=== PATIENT | male | born 1965 | race Caucasian/White ===

== ENCOUNTER 2020-09-20 13:53 | Outpatient (REF) | payer OTHER, SELFPAY ==
[2020-09-20 14:34] LABS: MANUAL DIFF FLAG NO
[2020-09-20 14:38] LABS: Basophils Absolute Auto 0.1 X10*3/uL (0.0-0.2); Basophils Percent Auto 0.7 % (0-2); Eosinophils Absolute Auto 0.2 X10*3/uL (0.0-0.4); Eosinophils Percent Auto 2.9 % (0-4); Hematocrit 45.3 % (42-52); Hemoglobin 15.5 g/dl (14.0-18.0); Imm Gran Abs Auto 0.02 X10*3/uL (0.00-0.03); Imm Gran Pct Auto 0.3 % (0.0-0.4); Lymphocytes Absolute Auto 1.8 X10*3/uL (1.2-4.9); Lymphocytes Percent Auto 24.4 % (20-40); Mean Corpuscular HGB Conc 34.2 g/dl (31.0-36.0); Mean Corpuscular Hemoglobin 33.3 pg (27.0-33.0); Mean Corpuscular Volume 97.4 fL (80-98); Mean Platelet Volume 11.1 fL (9.4-12.4); Monocytes Absolute Auto 0.5 X10*3/uL (0.1-1.2); Monocytes Percent Auto 6.2 % (2-11); Neutrophils Absolute Auto 4.9 X10*3/uL (2.0-8.3); Neutrophils Percent Auto 65.5 % (45-73); Platelet Count 144 X10*3/uL (160-400); Red Blood Count 4.65 X10*6/uL (4.60-5.80); Red Cell Distribution Width 12.8 % (11.0-16.0); White Blood Count 7.5 X10*3/uL (4.8-10.8)
[2020-09-20 15:05] LABS: Alanine Aminotransferase 64 U/L (0-40); Albumin Level 4.2 g/dL (3.5-5.0); Alkaline Phosphatase 128 U/L (39-117); Anion Gap 12 (12-20); Aspartate Amino Transferase 79 U/L (5-37); Bilirubin Total 1.9 mg/dL (0.0-1.0); Blood Urea Nitrogen 14 mg/dL (9-16); Calcium 9.5 mg/dL (8.4-10.2); Carbon Dioxide 26 mmol/L (22-29); Chloride 105 mmol/L (96-108); Estimated Glomerular Filt Rate > 60; Glucose Random 108 mg/dL (60-115); Sodium 139 mmol/L (135-145); Total Protein 7.7 g/dL (6.5-8.0)
[2020-09-20 15:31] LABS: CDIFF Ag Negative (Negative); CDIFF Internal ctrl Dots and bkg OK (V); CDiff Toxin Negative (Negative)
[2020-09-20 15:59] LABS: Leukocytes Stool Qualitative MOD: 3-9/OIF (NEGATIVE)
== END 2020-09-20 13:54 | disposition home or self-care (01) ==
LOC: HO.LAB 13:53
PROVIDERS: PCP Internal Medicine; Visit Provider Internal Medicine
DX: R19.7 Diarrhea, unspecified (principal)
CPT/HCPCS: 36415; 80053; 85025; 87045; 87046; 87324; 87329; 87338; 87449; 89055

== ENCOUNTER 2020-10-16 09:26 | Outpatient (REF) | payer OTHER, SELFPAY ==
--- NOTE | ~2020-10-16 | US_ITS ---
EXAMINATION: US COMPLETE ABDOMEN WITH LIVER ELASTOGRAPHY CLINICAL INFORMATION: Obesity. COMPARISON: None. TECHNIQUE: Real-time imaging of the abdominal viscera. Noninvasive ultrasound liver fibrosis assessment is performed using Clementina ElastPQ point quantification shear wave elastography (pSWE) with a C5-2 MHz transducer. Multiple elastography samples are obtained. FINDINGS: PANCREAS: The pancreas is completely obscured by overlying gas. ABDOMINAL AORTA: The proximal abdominal aorta is normal caliber. The mid and distal abdominal aorta is not visualized. INFERIOR VENA CAVA: Visualized portions are normal. LIVER: The liver demonstrates enlarged size, normal contour and increased echogenicity. No focal lesion or intrahepatic biliary duct dilatation. The right lobe measures 24.4 cm in length. The left lobe measures 14.2 cm in length. Portal flow is hepatopedal. Shear wave liver elastography median stiffness is 2.45 m/s (reference: normal median stiffness is 1.3 m/s or less). IQR/median stiffness to assess sampling precision is 0.12 (reference: good quality data set is IQR/median stiffness of 0.15 or less). GALLBLADDER: The gallbladder is contracted with mild wall thickening measuring 0.5 cm. COMMON BILE DUCT: Normal in caliber measuring 0.23 cm in diameter. RIGHT KIDNEY: Normal. No hydronephrosis. No renal calculi or focal parenchymal lesions. The kidney measures 13.7 cm in maximum dimension. LEFT KIDNEY: Normal. No hydronephrosis. No renal calculi or focal parenchymal lesions. The kidney measures 14.8 cm in maximum dimension. SPLEEN: The spleen is mildly enlarged and measures 17.4 cm in maximum dimension. FREE FLUID: None. US/US abdomen comp w elastography IMPRESSION: 1. Mild hepatomegaly with hepatic steatosis. No focal lesion seen. The gallbladder is contracted and not well visualized. The spleen is mildly enlarged. 2. Liver elastography: The liver stiffness measures 2.45 m/s. 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 REFERENCE: Society of Radiologists in Ultrasound Liver Stiffness Thresholds (2020): LIVER STIFFNESS THRESHOLDS: *Liver Stiffness equal or less than 1.3 m/s: High probability of being normal. *Liver Stiffness less than 1.7 m/s: In the absence of other known clinical signs, rules out compensated advanced chronic liver disease. *Liver Stiffness 1.7-2.1 m/s: Suggestive of compensated advanced chronic liver disease but need further test for confirmation. *Liver Stiffness over 2.1 m/s: Rules in compensated advanced chronic liver disease. *Liver Stiffness over 2.4 m/s: Suggestive of clinically significant portal hypertension. QUALITY OF DATA SET: *IQR/Median value equal or less than 0.15 implies a quality data set. *IQR/Median value over 0.15 implies a poor quality data set. SIGNIFICANT CHANGE FROM PRIOR EXAM: Significant change if liver stiffness measurement is 10% or greater from prior exam. OTHER CONSIDERATIONS: The stage of liver fibrosis may be overestimated in the setting of acute hepatitis, liver inflammation, elevated liver function tests, hepatic vascular congestion, obstructive cholestasis, non-fasting state, and infiltrative diseases such as amyloidosis and lymphoma. In some patients with NAFLD, the liver stiffness thresholds for compensated advanced chronic liver disease may be lower. In causes other than viral hepatitis and NAFLD, liver stiffness thresholds are not well established.
== END 2020-10-16 09:27 | disposition home or self-care (01) ==
LOC: HO.US 09:26
PROVIDERS: PCP Internal Medicine; Visit Provider Internal Medicine
DX: K80.20 Calculus of gallbladder without cholecystitis without obstruction (principal)
CPT/HCPCS: 76705; 76981

== ENCOUNTER 2020-12-21 12:05 | Outpatient (REF) | payer OTHER, SELFPAY | END 2020-12-21 12:06 | disposition home or self-care (01) | LOC: HO.HOSX 12:05 | PROVIDERS: Visit Provider Orthopaedic Surgery | DX: Z13.89 Encounter for screening for other disorder (principal) ==

== ENCOUNTER 2020-12-22 09:49 | Outpatient (REF) | payer OTHER, SELFPAY ==
--- NOTE | ~2020-12-22 | XR_ITS ---
EXAMINATION: XR SHOULDER, LEFT CLINICAL INFORMATION: Pain left shoulder COMPARISON: None TECHNIQUE: Three views of the left shoulder. FINDINGS: There is no visible acute fracture, dislocation or subluxation. The glenohumeral joint and the left AC joint space is maintained normal. The soft tissues are normal. XR/XR shoulder LT min 2V IMPRESSION: Unremarkable left shoulder exam.
== END 2020-12-22 09:50 | disposition home or self-care (01) ==
LOC: HO.HOSX 09:49
PROVIDERS: Visit Provider Orthopaedic Surgery
DX: M75.42 Impingement syndrome of left shoulder (principal)
CPT/HCPCS: 20610; 73030; J1040

== ENCOUNTER 2022-02-12 14:08 | Outpatient (REF) | payer OTHER, SELFPAY ==
[2022-02-12 15:13] LABS: Hematocrit 42.8 % (42.0-52.0); Hemoglobin 14.6 g/dl (14.0-18.0); Mean Corpuscular HGB Conc 34.1 g/dl (31.0-36.0); Mean Corpuscular Hemoglobin 32.5 pg (27.0-33.0); Mean Corpuscular Volume 95.3 fL (80.0-98.0); Mean Platelet Volume 11.9 fL (9.4-12.4); Platelet Count 110 X10*3/uL (160-400); Red Blood Count 4.49 X10*6/uL (4.60-5.80); Red Cell Distribution Width 12.6 % (11.0-16.0); White Blood Count 5.5 X10*3/uL (4.8-10.8)
[2022-02-12 15:19] LABS: Appearance Urine CLEAR; Color Urine DK YELLOW; Glucose Urine UA NEG (NEG); Leukocyte Esterase Urine NEG (NEG); Nitrite Urine NEG (NEG); PH 6.5 (5.0-8.0); Urine Blood NEG (NEG); Urine Ketones NEG (NEG); Urine Protein NEG (NEG-TRACE)
[2022-02-12 15:42] LABS: Alanine Aminotransferase 64 U/L (0-40); Alkaline Phosphatase 143 U/L (39-117); Anion Gap 11 (12-20); Aspartate Amino Transferase 81 U/L (5-37); Blood Urea Nitrogen 10 mg/dL (9-16); Calcium 9.1 mg/dL (8.4-10.2); Carbon Dioxide 28 mmol/L (22-29); Chloride 106 mmol/L (96-108); Cholesterol 212 mg/dL; Estimated Glomerular Filt Rate > 60; Glucose Random 98 mg/dL (60-115); HDL Cholesterol 65 mg/dL; LDL Cholesterol Calculated 122 mg/dl; Potassium 4.3 mmol/L (3.3-5.1); Sodium 141 mmol/L (135-145); Total Protein 7.5 g/dL (6.5-8.0); Triglycerides 125 mg/dL
[2022-02-12 16:03] LABS: Thyroid Stimulating Hormone 1.89 uIU/mL (0.32-4.0)
== END 2022-02-12 14:09 | disposition home or self-care (01) ==
LOC: HO.LAB 14:08
PROVIDERS: PCP Internal Medicine; Visit Provider Internal Medicine
DX: K21.9 Gastro-esophageal reflux disease without esophagitis (principal)
CPT/HCPCS: 36415; 80048; 80061; 80076; 81003; 84443; 85027

== ENCOUNTER 2022-10-16 14:07 | Outpatient (AMB) | payer OTHER, SELFPAY ==
--- NOTE | 2022-10-16 15:28 | AM.OFFWIN_ITS ---
Intake Vital Signs 10/16/22 15:36 BP 124/82 Blood Pressure Location Lt brachial Position Sitting Pulse 101 H Temp 98.1 F Pulse Oximetry (%) 96 Intake Visit Reasons: EP swollen feet, fatigue,low apetite [phone] Intake Note: Antonio presents today with swelling & redness of bilateral ankles, afternoon tiredness, eye swelling & stye as well as sore on the left side of the mouth Patient Tobacco Use Status: Never used Tobacco Allergies No Known Allergies [No Known Allergies*] Allergy (Verified 11/18/23 08:40) [facility] Medical History (Updated 11/04/23 @ 17:10 by Bailey Coleman NP) Thrombocytopenia Cirrhosis Closed rib fracture Acute alcoholic liver disease Gallstones Diarrhea Cholelithiasis Fatty liver Lyme disease GERD (gastroesophageal reflux disease) Vitamin D deficiency Impaired glucose tolerance Hypertriglyceridemia Hypertension Obesity (BMI 30-39.9) Surgical History (Updated 11/18/23 @ 08:48 by FIDEL Westbrook) History of endoscopy No pertinent past surgical history Social History (Updated 11/18/23 @ 08:49 by FIDEL Westbrook) Household Members: Family Housing: House Do you presently have visiting nurse or other home services: No Alcohol intake: current Alcohol intake frequency: does not drink Alcohol type: beer Patient Tobacco Use Status: Never used Tobacco e-Cigarette/Vaping Use: Never Used Second Hand Smoke Exposure: No Substance Use Type: Marijuana service: No Current occupational status: employed Current occupational exposures/hazards: No Cognitive needs: No Hearing needs: No Vision needs: Yes (Glasses) Physical Exam Vital Signs: Last Vital Signs Temp 98.1 F 10/16/22 15:36 Pulse 101 H 10/16/22 15:36 BP 124/82 10/16/22 15:36 Pulse Ox 96 10/16/22 15:36 Assessment & Plan Assessment & Plan Medications: New furosemide 20 mg PO DAILY 30 tabs 0RF Coding Level of Care Code Est Pt Level 1 (20670)
[2022-10-16 15:36] VITALS: BP 124/82; PULSE 101; TEMP 36.7; O2SAT 96
== END 2022-10-16 16:45 | disposition home or self-care (01) ==
PROVIDERS: PCP Internal Medicine; Visit Provider Internal Medicine
DX: Z00.00 Encounter for general adult medical examination without abnormal findings (principal)
CPT/HCPCS: 99499

== ENCOUNTER 2022-10-21 17:13 | Outpatient (REF) | payer OTHER, SELFPAY ==
[2022-10-21 18:11] LABS: B Type Natriuretic Peptide 26 pg/mL (<100)
[2022-10-21 18:12] LABS: Alanine Aminotransferase 51 U/L (0-40); Albumin Level 3.5 g/dL (3.5-5.0); Alkaline Phosphatase 151 U/L (39-117); Anion Gap 11 (12-20); Aspartate Amino Transferase 72 U/L (5-37); Bilirubin Direct 1.2 mg/dL (0.0-0.5); Bilirubin Total 2.5 mg/dL (0.0-1.0); Blood Urea Nitrogen 14 mg/dL (9-16); Calcium 8.8 mg/dL (8.4-10.2); Carbon Dioxide 28 mmol/L (22-29); Chloride 106 mmol/L (96-108); Cholesterol 164 mg/dL; Estimated Glomerular Filt Rate > 60; Glucose Random 90 mg/dL (60-115); HDL Cholesterol 58 mg/dL; LDL Cholesterol Calculated 87 mg/dl; Potassium 3.9 mmol/L (3.3-5.1); Sodium 141 mmol/L (135-145); Total Protein 6.6 g/dL (6.5-8.0); Triglycerides 97 mg/dL
[2022-10-21 18:14] LABS: PLT CLUMP 1
[2022-10-21 18:16] LABS: Hematocrit 42.6 % (42.0-52.0); Hemoglobin 14.2 g/dl (14.0-18.0); Mean Corpuscular HGB Conc 33.3 g/dl (31.0-36.0); Mean Corpuscular Hemoglobin 33.2 pg (27.0-33.0); Mean Corpuscular Volume 99.5 fL (80.0-98.0); Red Blood Count 4.28 X10*6/uL (4.60-5.80); Red Cell Distribution Width 13.3 % (11.0-16.0)
[2022-10-21 18:25] LABS: Platelet Count 102 X10*3/uL (160-400); White Blood Count 6.2 X10*3/uL (4.8-10.8)
[2022-10-21 18:27] LABS: Thyroid Stimulating Hormone 2.46 uIU/mL (0.32-4.0)
== END 2022-10-21 17:14 | disposition home or self-care (01) ==
LOC: HO.LAB 17:13
PROVIDERS: PCP Internal Medicine; Visit Provider Internal Medicine
DX: R60.0 Localized edema (principal); I10 Essential (primary) hypertension
CPT/HCPCS: 36415; 80048; 80061; 80076; 83880; 84443; 85027

== ENCOUNTER 2023-10-17 06:09 | Inpatient (IN) | payer OTHER, SELFPAY ==
[2023-10-17] VITALS (10 sets, daily range): BP systolic 100–151; BP diastolic 48–79; PULSE 78–108; RESP 15–20; TEMP 36.7–37.4; O2SAT 95–97; BMI 42.8; BMI 52.4
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
[2023-10-17] MEDS: Diphth,Pertus(ACell),Tet Adult 0.5 ML SYRINGE IM (07:46)
[2023-10-17 07:48] LABS: MANUAL DIFF FLAG NO
[2023-10-17 07:50] LABS: Basophils Percent Auto 0.6 % (0-2); Eosinophils Absolute Auto 0.2 X10*3/uL (0.0-0.4); Eosinophils Percent Auto 3.2 % (0-4); Hematocrit 30.8 % (42.0-52.0); Hemoglobin 10.3 g/dl (14.0-18.0); Imm Gran Abs Auto 0.01 X10*3/uL (0.00-0.03); Imm Gran Pct Auto 0.2 % (0.0-0.4); Lymphocytes Absolute Auto 1.3 X10*3/uL (1.2-4.9); Lymphocytes Percent Auto 26.7 % (20-40); Mean Corpuscular HGB Conc 33.4 g/dl (31.0-36.0); Mean Corpuscular Hemoglobin 31.2 pg (27.0-33.0); Mean Corpuscular Volume 93.3 fL (80.0-98.0); Monocytes Absolute Auto 0.4 X10*3/uL (0.1-1.2); Monocytes Percent Auto 7.6 % (2-11); Neutrophils Absolute Auto 3.1 x10*3/uL (2.0-8.3); Neutrophils Percent Auto 61.7 % (45-73)
[2023-10-17 07:51] LABS: Platelet Count 99 X10*3/uL (160-400)
[2023-10-17 07:55] LABS: INTERNATIONAL NORM RATIO 1.1 (0.9-1.1); Prothrombin Time 13.4 SEC (11.1-13.3)
[2023-10-17 08:10] LABS: Alanine Aminotransferase 31 U/L (0-40); Albumin Level 3.2 g/dL (3.5-5.0); Alkaline Phosphatase 71 U/L (39-117); Anion Gap 12 (12-20); Aspartate Amino Transferase 51 U/L (5-37); Bilirubin Direct 0.5 mg/dL (0.0-0.5); Blood Urea Nitrogen 16 mg/dL (9-16); Calcium 8.7 mg/dL (8.4-10.2); Carbon Dioxide 22 mmol/L (22-29); Chloride 111 mmol/L (96-108); Creatinine Clr Calc Pharmacy 170.5; Estimated Glomerular Filt Rate > 60; Ethanol < 10 mg/dL; Glucose Random 99 mg/dL (60-115); Lipase 27 U/L (8-78); Magnesium 1.8 mg/dL (1.6-2.6); Potassium 4.5 mmol/L (3.3-5.1); Sodium 140 mmol/L (135-145); Total Protein 6.4 g/dL (6.5-8.0)
[2023-10-17 08:15] LABS: Bilirubin Total 1.6 mg/dL (0.0-1.0)
[2023-10-17 08:26] LABS: Influenza A PCR NEGATIVE (Negative); Influenza B PCR NEGATIVE (Negative); Resp Syncy Virus RNA Qual PCR NEGATIVE (Negative); SARS COV2 PCR INHOUSE NEGATIVE (Negative)
[2023-10-17] MEDS: Lidocaine HCl 1 % MPF 5 ML VIAL SUBCUT (09:47)
[2023-10-17] MEDS: 0.9 % Sodium Chloride 1,000 ML 999 ML IV (09:48)
[2023-10-17] MEDS: iohexoL 350 MG/ML 100 ML INFUS..BTL IV (09:56)
[2023-10-17 10:02] LABS: Appearance Urine Clear; Color Urine Dark Yellow; Glucose Urine UA Negative (Negative); Leukocyte Esterase Urine Negative (Negative); Nitrite Urine Negative (Negative); PH 7.5 (5.0-9.0); Specific Gravity - Urine >= 1.030 (1.005-1.025); Urine Blood Negative (Negative); Urine Ketones Negative (Negative); Urine Protein Negative (Neg-Trace)
[2023-10-17] MEDS: Pantoprazole Sodium 40 MG/10 ML VIAL IVPUSH (11:52)
[2023-10-17 12:17] LABS: Hematocrit 29.4 % (42.0-52.0); Hemoglobin 9.8 g/dl (14.0-18.0); Mean Corpuscular HGB Conc 33.3 g/dl (31.0-36.0); Mean Corpuscular Hemoglobin 31.2 pg (27.0-33.0); Mean Corpuscular Volume 93.6 fL (80.0-98.0); Mean Platelet Volume 11.5 fL (9.4-12.4); Red Blood Count 3.14 X10*6/uL (4.60-5.80); Red Cell Distribution Width 14.1 % (11.0-16.0); White Blood Count 4.1 X10*3/uL (4.8-10.8)
[2023-10-17 12:18] LABS: OBS Int Ctl Valid YES; OBS1 POSITIVE (NEGATIVE); Platelet Count 82 X10*3/uL (160-400)
--- NOTE | 2023-10-17 12:31 | ECG_ITS ---
Test Reason : GI BLEED Blood Pressure : / mmHG Vent. Rate : 076 BPM Atrial Rate : 076 BPM P-R Int : 138 ms QRS Dur : 092 ms QT Int : 420 ms P-R-T Axes : 005 -11 010 degrees QTc Int : 472 ms Artifact in tracing Normal sinus rhythm Minimal voltage criteria for LVH, may be normal variant ( R in aVL ) Abnormal ECG When compared with ECG of 31-JAN-2009 07:28, T wave inversion less evident in Inferior leads Referred By: Radha Elmore Electronically Signed By:WILLOW ORNELAS
[2023-10-17] MEDS: Thiamine HCL 200 MG in 0.9 % Sodium Chloride 100 ML 204 MG IV (13:02)
[2023-10-17] MEDS: Magnesium Sulfate/H2O 2 GM/50 ML PIGGYBACK IV (13:06)
--- NOTE | 2023-10-17 13:20 | PHA.MEDREC ---
Pharmacy Consult ? Medication Reconciliation Pharmacy has completed the medication reconciliation. Spoke to patient and his .
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
--- NOTE | 2023-10-17 15:27 | HO.ANESPROP2 ---
[facility] Active Problems Active Problems: All Active Problems (Updated 10/17/23 @ 12:51 by Radha Elmore DO) Dizziness (Acute) Acute upper GI bleed (Acute) Face lacerations (Acute) Thrombocytopenia (Acute) Cirrhosis (Acute) Closed rib fracture (Acute) Acute alcoholic liver disease (Acute) Blurred vision (Acute) Edema of both feet (Acute) Helicobacter pylori (H. pylori) (Acute) Obesity (Acute) Gallstones (Acute) Diarrhea (Acute) GERD (gastroesophageal reflux disease) (Acute) Impaired glucose tolerance (Acute) Hypertriglyceridemia (Acute) Hypertension (Acute) Obesity (BMI 30-39.9) (Acute) Past Medical History Medical History Acute alcoholic liver disease Gallstones Diarrhea Cholelithiasis Fatty liver Lyme disease GERD (gastroesophageal reflux disease) Vitamin D deficiency Impaired glucose tolerance Hypertriglyceridemia Hypertension Obesity (BMI 30-39.9) Functional capacity: independent ambulation Surgical History Surgical History No pertinent past surgical history History of Problems with Anesthesia: No Social History Social History Housing: House Alcohol intake: current Alcohol intake frequency: a few times a week Alcohol type: beer Patient Tobacco Use Status: Never used Tobacco e-Cigarette/Vaping Use: Never Used Second Hand Smoke Exposure: No Advance Directives: Yes Advance Directives Information Provided: Yes Advance Directives on File: No service: No Current occupational status: employed Current occupational exposures/hazards: No Cognitive needs: No Hearing needs: No Vision needs: No Meds Allergies Allergy/AdvReac Type Severity Reaction Status Date / Time No Known Allergies Allergy Verified 10/17/23 06:36 [No Known Allergies*] Active Medications: Current Medications Acetaminophen (Acetaminophen 325 Mg Tablet) 650 mg PO Q6H PRN PRN Reason: Pain, Mild (Pain Scale 1-3) Benzonatate (Benzonatate 100 Mg Capsule) 100 mg PO TID PRN PRN Reason: Cough Cyclobenzaprine HCl (Cyclobenzaprine Hcl 10 Mg Tablet) 10 mg PO TID PRN PRN Reason: Muscle Spasm Docusate Sodium (Docusate Sodium 100 Mg Capsule) 100 mg PO DAILY PRN PRN Reason: Constipation Fenofibrate (Fenofibrate 160 Mg Tablet) 160 mg PO DAILY SAMARA Furosemide (Furosemide 20 Mg Tablet) 20 mg PO DAILY SAMARA; Protocol Lisinopril (Lisinopril 10 Mg Tablet) 10 mg PO DAILY SAMARA; Protocol Melatonin (Melatonin 3 Mg Tablet) 6 mg PO BEDTIME PRN PRN Reason: Insomnia Ondansetron HCl (Ondansetron Hcl 4 Mg/2 Ml Vial) 4 mg IVPUSH Q8H PRN PRN Reason: Nausea and Vomiting Oxycodone HCl (Oxycodone Hcl Immed Release 5 Mg Tablet) 5 mg PO Q6H PRN PRN Reason: Pain, Moderate(Pain Scale 4-6) Pantoprazole Sodium (Pantoprazole Sodium 40 Mg/10 Ml Vial) 40 mg IVPUSH DAILY@0630 [facility] Sodium Chloride (0.9 % Sodium Chloride Flush 3 Ml Syringe) 3 ml IVFLUSH QSHIFT SAMARA Exam Height,Weight and Vital Signs: Height 5 ft 9 in Weight 131.542 kg Last Vital Signs Temp 98.2 F 10/17/23 14:22 Pulse 92 10/17/23 14:22 Resp 18 10/17/23 14:22 BP 138/58 L 10/17/23 14:22 Pulse Ox 96 10/17/23 14:22 O2 Del Method Room Air 10/17/23 14:22 Pertinent Lab Results Pertinent Lab Results: Laboratory Tests 10/17/23 10/17/23 10/17/23 07:38 08:20 09:52 WBC 5.0 RBC 3.30 L D Hgb 10.3 L D Hct 30.8 L D MCV 93.3 MCH 31.2 MCHC 33.4 RDW 14.0 Plt Count 99 L MPV 12.0 Immature Gran % (Auto) 0.2 Neut % (Auto) 61.7 Lymph % (Auto) 26.7 [place] % (Auto) 7.6 Eos % (Auto) 3.2 Baso % (Auto) 0.6 Lymph # (Auto) 1.3 [place] # (Auto) 0.4 Eos # (Auto) 0.2 Baso # (Auto) 0.0 Abs Immat Gran (auto) 0.01 Absolute Neuts (auto) 3.1 Absolute Nucleated RBC 0.000 Nucleated RBC % (auto) 0.0 PT 13.4 H INR 1.1 Sodium 140 Potassium 4.5 Chloride 111 H Carbon Dioxide 22 Anion Gap 12 BUN 16 Creatinine 0.65 Estim Creat Clear Calc 170.5 Estimated GFR > 60 Random Glucose 99 Calcium 8.7 Magnesium 1.8 Total Bilirubin 1.6 H Direct Bilirubin 0.5 AST 51 H ALT 31 Alkaline Phosphatase 71 Total Protein 6.4 L Albumin 3.2 L Lipase 27 Urine Color Dark Yellow Urine Appearance Clear Urine pH 7.5 Ur Specific [place] >= 1.030 H Urine Protein Negative Urine Glucose (UA) Negative Urine Ketones Negative Urine Blood Negative Urine Nitrite Negative Ur Leukocyte Esterase Negative Stool Occult Blood Ethyl Alcohol < 10 Influenza Type A (PCR) NEGATIVE Influenza Type B (PCR) NEGATIVE RSV RNA Qual (PCR) NEGATIVE SARS-CoV-2 RNA (RT-PCR) NEGATIVE Blood Type O Positive Antibody Screen NEGATIVE 10/17/23 12:11 WBC 4.1 L RBC 3.14 L Hgb 9.8 L Hct 29.4 L MCV 93.6 MCH 31.2 MCHC 33.3 RDW 14.1 Plt Count 82 L MPV 11.5 Immature Gran % (Auto) Neut % (Auto) Lymph % (Auto) [place] % (Auto) Eos % (Auto) Baso % (Auto) Lymph # (Auto) [place] # (Auto) Eos # (Auto) Baso # (Auto) Abs Immat Gran (auto) Absolute Neuts (auto) Absolute Nucleated RBC 0.000 Nucleated RBC % (auto) 0.0 PT INR Sodium Potassium Chloride Carbon Dioxide Anion Gap BUN Creatinine Estim Creat Clear Calc Estimated GFR Random Glucose Calcium Magnesium Total Bilirubin Direct Bilirubin AST ALT Alkaline Phosphatase Total Protein Albumin Lipase Urine Color Urine Appearance Urine pH Ur Specific [place] Urine Protein Urine Glucose (UA) Urine Ketones Urine Blood Urine Nitrite Ur Leukocyte Esterase Stool Occult Blood POSITIVE Ethyl Alcohol Influenza Type A (PCR) Influenza Type B (PCR) RSV RNA Qual (PCR) SARS-CoV-2 RNA (RT-PCR) Blood Type Antibody Screen Airway Mallampati Class: III TM Dist: >3cm Neck ROM: Full Assessment and Plan Final Anesthetic Review History of Problems with Anesthesia: No
--- NOTE | 2023-10-17 16:30 | W.PM.OPN ---
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 Instrument: Olympus GIF H 190 mid size upper endoscope Monitoring: Vital signs and clinical assessment, continuous EKG monitoring, Pulse oximetry, Carbon Dioxide monitoring and blood pressure monitoring were done throughout the procedure. Procedure: The patient was placed in the left lateral decubitis position and pre-procedure medications were administered and a bite block was placed. The endoscope was inserted into the mouth and advanced under direct vision to the third part of duodenum. A careful inspection was made as the upper endoscope was withdrawn including a retroflexed examination of the proximal stomach; The patient desaturated and became apneic and endoscope was removed. Pt needs to have the EGD with GA. Since no active bleeding was seen during EGD, pt scheduled to have EGD with APC of GAVE under with GA on 10/20/23 Findings and interventions are described below. Findings: Larynx: Normal Esophagus: GE junction at 40 cms. Grade 2 four column nonbleeding esophageal varices from 30 to 40 cms without high risk bleeding stigmata. Stomach: Mosaic appearance of gastric mucosa consistent with moderate portal gastropathy. Gastric antral vascular ectasia involving the gastric antrum without active bleeding Grade 2 flap valve on retroflexed examination of the cardia. Duodenum: Normal bulb and descending duodenum Intervention: None Impression and Post Procedure Diagnosis: Endoscopy Findings: ESOPHAGUS: GE junction at 40 cms. Grade 2 four column nonbleeding esophageal varices from 30 to 40 cms without high risk bleeding stigmata. STOMACH: Mosaic appearance of gastric mucosa consistent with moderate portal gastropathy. Gastric antral vascular ectasia involving the gastric antrum without active bleeding The patient desaturated and became apneic and endoscope was removed and procedure was discontinued. Per anesthesia, EGD needs to be rescheduled with GA and endotracheal intubation. Clear fluid and no blood seen in the UGI tract during EGD. Anemia is likely due to slow GI blood loss from GAVE over the past several weeks. Plan: 1. Pt can be started on a regular diet. 2. Monitor CBC tonight and then daily 3. Since no active bleeding was seen during EGD, pt scheduled to have EGD with APC of GAVE under with GA on 10/20/23. If pt has active bleeding/decreasing hemoglobin over the weekend, please contact Dr Pizarro (supplier relationship director for GI this weekend) 4. Needs ETOH rehab to stop drinking Above findings were reviewed with the patient.
[2023-10-17] MEDS: oxyCODONE HCl Immed Release 5 MG TABLET PO (17:02)
[2023-10-17] MEDS: Acetaminophen 325 MG TABLET 650 MG PO (17:02)
[2023-10-17 19:28] LABS: Hematocrit 31.2 % (42.0-52.0); Hemoglobin 10.3 g/dl (14.0-18.0)
[2023-10-17] MEDS: 0.9 % Sodium Chloride Flush 3 ML SYRINGE IVFLUSH (20:05)
[2023-10-17] MEDS: Melatonin 3 MG TABLET 6 MG PO (21:44)
[2023-10-18] MEDS: oxyCODONE HCl Immed Release 5 MG TABLET PO ×3 (02:04→18:01)
[2023-10-18 03:01] VITALS: BP 133/60; PULSE 81; RESP 18; TEMP 37; O2SAT 95
[2023-10-18 05:51] LABS: MANUAL DIFF FLAG NO
[2023-10-18] MEDS: Pantoprazole Sodium 40 MG/10 ML VIAL IVPUSH (05:51)
[2023-10-18 06:00] LABS: Basophils Percent Auto 0.4 % (0-2); Eosinophils Absolute Auto 0.3 X10*3/uL (0.0-0.4); Eosinophils Percent Auto 5.2 % (0-4); Hematocrit 31.3 % (42.0-52.0); Hemoglobin 10.2 g/dl (14.0-18.0); Imm Gran Abs Auto 0.02 X10*3/uL (0.00-0.03); Imm Gran Pct Auto 0.4 % (0.0-0.4); Lymphocytes Absolute Auto 1.5 X10*3/uL (1.2-4.9); Mean Corpuscular HGB Conc 32.6 g/dl (31.0-36.0); Mean Corpuscular Hemoglobin 31.2 pg (27.0-33.0); Mean Corpuscular Volume 95.7 fL (80.0-98.0); Mean Platelet Volume 11.8 fL (9.4-12.4); Monocytes Absolute Auto 0.4 X10*3/uL (0.1-1.2); Monocytes Percent Auto 7.6 % (2-11); Neutrophils Absolute Auto 2.7 x10*3/uL (2.0-8.3); Neutrophils Percent Auto 56.4 % (45-73); Red Blood Count 3.27 X10*6/uL (4.60-5.80); Red Cell Distribution Width 14.3 % (11.0-16.0); White Blood Count 4.8 X10*3/uL (4.8-10.8)
[2023-10-18 06:02] LABS: Platelet Count 92 X10*3/uL (160-400)
[2023-10-18 06:30] LABS: Anion Gap 9 (12-20); Blood Urea Nitrogen 11 mg/dL (9-16); Carbon Dioxide 25 mmol/L (22-29); Chloride 110 mmol/L (96-108); Creatinine Clr Calc Pharmacy 188.8; Estimated Glomerular Filt Rate > 60; Glucose Random 95 mg/dL (60-115); Potassium 4.3 mmol/L (3.3-5.1); Sodium 140 mmol/L (135-145)
[2023-10-18 07:12] VITALS: BP 145/84; PULSE 87; RESP 16; TEMP 36.8; O2SAT 95
[2023-10-18] MEDS: 0.9 % Sodium Chloride Flush 3 ML SYRINGE IVFLUSH ×2 (08:04→16:15)
[2023-10-18] MEDS: lisinopriL 10 MG TABLET PO (08:05)
[2023-10-18] MEDS: Furosemide 20 MG TABLET PO (08:05)
[2023-10-18] MEDS: Fenofibrate 160 MG TABLET PO (08:05)
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
[2023-10-18 15:09] VITALS: BP 132/69; PULSE 97; RESP 20; TEMP 36.9; O2SAT 93
[2023-10-18 19:57] VITALS: BP 141/60; PULSE 83; RESP 20; TEMP 36.9; O2SAT 95
[2023-10-19] MEDS: Melatonin 3 MG TABLET 6 MG PO (00:29)
[2023-10-19] MEDS: oxyCODONE HCl Immed Release 5 MG TABLET PO ×3 (00:30→18:07)
[2023-10-19 03:38] VITALS: BP 126/60; PULSE 76; RESP 19; TEMP 37.3; O2SAT 95
[2023-10-19] MEDS: Omeprazole 40 MG CAPSULE.DR PO (05:31)
[2023-10-19 05:49] LABS: MANUAL DIFF FLAG NO
[2023-10-19 06:07] LABS: Basophils Percent Auto 0.8 % (0-2); Eosinophils Absolute Auto 0.2 X10*3/uL (0.0-0.4); Eosinophils Percent Auto 4.8 % (0-4); Hematocrit 30.6 % (42.0-52.0); Hemoglobin 10.3 g/dl (14.0-18.0); Imm Gran Abs Auto 0.02 X10*3/uL (0.00-0.03); Imm Gran Pct Auto 0.4 % (0.0-0.4); Lymphocytes Absolute Auto 1.5 X10*3/uL (1.2-4.9); Lymphocytes Percent Auto 30.8 % (20-40); Mean Corpuscular HGB Conc 33.7 g/dl (31.0-36.0); Mean Corpuscular Hemoglobin 31.4 pg (27.0-33.0); Mean Corpuscular Volume 93.3 fL (80.0-98.0); Mean Platelet Volume 11.5 fL (9.4-12.4); Monocytes Absolute Auto 0.4 X10*3/uL (0.1-1.2); Monocytes Percent Auto 9.1 % (2-11); Neutrophils Absolute Auto 2.6 x10*3/uL (2.0-8.3); Neutrophils Percent Auto 54.1 % (45-73); Red Blood Count 3.28 X10*6/uL (4.60-5.80); Red Cell Distribution Width 14.1 % (11.0-16.0); White Blood Count 4.8 X10*3/uL (4.8-10.8)
[2023-10-19 06:08] LABS: Platelet Count 96 X10*3/uL (160-400)
[2023-10-19] MEDS: 0.9 % Sodium Chloride Flush 3 ML SYRINGE IVFLUSH ×3 (07:25→20:11)
[2023-10-19 07:34] VITALS: BP 142/87; PULSE 91; RESP 18; TEMP 36.6; O2SAT 94
[2023-10-19] MEDS: Furosemide 20 MG TABLET PO (07:41)
[2023-10-19] MEDS: Fenofibrate 160 MG TABLET PO (07:41)
[2023-10-19] MEDS: lisinopriL 10 MG TABLET PO (07:41)
--- NOTE | 2023-10-19 09:24 | MHC.CM.PN ---
Addendum entered by Bailey Sahu RN 10/19/23 11:00: PT SEEN BY CM YESTERDAY 10/17. Original Note: cm attempted to meet w/pt however pt w/rn, cm will revisit.
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
--- NOTE | 2023-10-19 11:17 | MHC.RECOVRN ---
Met with pt in 360-1 after consult placed to Addiction Medicine for AUD. Pt had presented to the ED from home post fall with complaints of dizzyness and chest pain. Upon evaluation, pt admitted for R/O upper GI bleed, and fx ribs. Pt sitting up in chair, alert and oriented x4, speaking in clear/full sentences, lacerations noted to his left orbital area and brow that he states are from a fall at home. 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 Angela
--- NOTE | 2023-10-19 11:21 | MHC.RECOVRN ---
Met with pt in 360-1 after consult placed to Addiction Medicine for AUD. Pt had presented to the ED from home post fall with complaints of dizzyness and chest pain. Upon evaluation, pt admitted for R/O upper GI bleed, and fx ribs. Pt sitting up in chair, alert and oriented x4, speaking in clear/full sentences, lacerations noted to his left orbital area and brow that he states are from a fall at home. 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 Pt states he has been drinking daily since his early 20s, is tearful when talking about his current health, acknowledges that since the pandemic things have got really hard, and Im not the same . 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 Pt was educated on naltrexone, is open to trying it while inpt. Dr Bernal made aware. Pt will see our office outpatient 10/21 at 130 pm for intake.
[2023-10-19] MEDS: Acetaminophen 325 MG TABLET 650 MG PO ×2 (11:51→22:13)
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
[2023-10-19 15:24] VITALS: BP 133/54; PULSE 87; RESP 18; TEMP 36.7; O2SAT 95
[2023-10-19 19:39] VITALS: BP 119/57; PULSE 78; RESP 17; TEMP 36.7; O2SAT 94
--- NOTE | 2023-10-19 21:17 | HO.POSTANES ---
Post Anesthesia Evaluation Post Anesthesia Evaluation Date of Service: 10/17/23 Vital Signs: Vital Signs Temp Pulse Resp BP Pulse Ox O2 Del Method 10/19/23 19:39 98.1 F 78 17 119/57 L 94 Room Air 10/19/23 15:24 98.1 F 87 18 133/54 L 95 Room Air Anesthesia: Monitored Mental Status: Awake Pain Control: Satisfactory Nausea/Vomiting: None Hydration: Adequate Anesthesia-Related Issues: No Anes. Related Issues
[2023-10-20] VITALS (9 sets, daily range): BP systolic 101–143; BP diastolic 44–79; PULSE 71–93; RESP 16–22; TEMP 36.2–37.6; O2SAT 90–95
[2023-10-20] MEDS: oxyCODONE HCl Immed Release 5 MG TABLET PO ×5 (00:02→23:55)
[2023-10-20] MEDS: Omeprazole 40 MG CAPSULE.DR PO (05:47)
[2023-10-20] MEDS: 0.9 % Sodium Chloride Flush 3 ML SYRINGE IVFLUSH (06:48)
[2023-10-20] MEDS: Fenofibrate 160 MG TABLET PO (06:51)
[2023-10-20] MEDS: Cyclobenzaprine HCl 10 MG TABLET PO (06:51)
[2023-10-20] MEDS: Furosemide 20 MG TABLET PO (06:51)
[2023-10-20] MEDS: lisinopriL 10 MG TABLET PO (06:52)
--- NOTE | 2023-10-20 10:13 | HO.ANESPROP2 ---
Documented by User: Philomena Bateman MD 10/20/23 13:43 [facility] Past Medical History Medical History Acute alcoholic liver disease Gallstones Diarrhea Cholelithiasis Fatty liver Lyme disease GERD (gastroesophageal reflux disease) Vitamin D deficiency Impaired glucose tolerance Hypertriglyceridemia Hypertension Obesity (BMI 30-39.9) Family History Family history of problems with anesthesia: No Surgical History Surgical History No pertinent past surgical history Social History Social History Household Members: Family Housing: House Do you presently have visiting nurse or other home services: No Alcohol intake: current Alcohol intake frequency: a few times a week Alcohol type: beer Patient Tobacco Use Status: Never used Tobacco e-Cigarette/Vaping Use: Never Used Second Hand Smoke Exposure: No Substance Use Type: Marijuana service: No Current occupational status: employed Current occupational exposures/hazards: No Cognitive needs: No Hearing needs: No Vision needs: No Meds Allergies Allergy/AdvReac Type Severity Reaction Status Date / Time No Known Allergies Allergy Verified 10/17/23 06:36 [No Known Allergies*] Exam Airway Mallampati Class: III TM Dist: >3cm Neck ROM: Full Heart: rrr Lungs: cta, diminshed Assessment and Plan Assessment Anesthesia Assessment: Anesthesia Plan Discussed and Chart Reviewed Final Anesthetic Review Family History of Problems with Anesthesia: No NPO: Yes ASA Class: III Final Preanesthetic Review: No Changes in Pt Med Stat, Meds/Allgs Chart Reviewed and Consent Obtained/Reviewed Patient Risk: Intermediate Procedure Risk: Intermediate Anesthetic Plan Anesthetic Plan: GA Disposition: Standard PACU Documented by User: Ellen Minaya MD [facility] Active Problems Active Problems: All Active Problems (Updated 10/17/23 @ 12:51 by Radha Ramírez, DO) Dizziness (Acute) Acute upper GI bleed (Acute) Face lacerations (Acute) Thrombocytopenia (Acute) Cirrhosis (Acute) Closed rib fracture (Acute) Acute alcoholic liver disease (Acute) Blurred vision (Acute) Edema of both feet (Acute) Helicobacter pylori (H. pylori) (Acute) Obesity (Acute) Gallstones (Acute) Diarrhea (Acute) GERD (gastroesophageal reflux disease) (Acute) Impaired glucose tolerance (Acute) Hypertriglyceridemia (Acute) Hypertension (Acute) Obesity (BMI 30-39.9) (Acute) Past Medical History Medical History Acute alcoholic liver disease Gallstones Diarrhea Cholelithiasis Fatty liver Lyme disease GERD (gastroesophageal reflux disease) Vitamin D deficiency Impaired glucose tolerance Hypertriglyceridemia Hypertension Obesity (BMI 30-39.9) Functional capacity: independent ambulation Surgical History Surgical History No pertinent past surgical history History of Problems with Anesthesia: No Social History Social History Household Members: Family Housing: House Do you presently have visiting nurse or other home services: No Alcohol intake: current Alcohol intake frequency: a few times a week Alcohol type: beer Patient Tobacco Use Status: Never used Tobacco e-Cigarette/Vaping Use: Never Used Second Hand Smoke Exposure: No Substance Use Type: Marijuana service: No Current occupational status: employed Current occupational exposures/hazards: No Cognitive needs: No Hearing needs: No Vision needs: No Meds Allergies Allergy/AdvReac Type Severity Reaction Status Date / Time No Known Allergies Allergy Verified 10/17/23 06:36 [No Known Allergies*] Active Medications: Current Medications Acetaminophen (Acetaminophen 325 Mg Tablet) 650 mg PO Q6H PRN PRN Reason: Pain, Mild (Pain Scale 1-3) Last Admin: 10/19/23 22:13 Dose: 650 mg Benzonatate (Benzonatate 100 Mg Capsule) 100 mg PO TID PRN PRN Reason: Cough Cyclobenzaprine HCl (Cyclobenzaprine Hcl 10 Mg Tablet) 10 mg PO TID PRN PRN Reason: Muscle Spasm Last Admin: 10/20/23 06:51 Dose: 10 mg Docusate Sodium (Docusate Sodium 100 Mg Capsule) 100 mg PO DAILY PRN PRN Reason: Constipation Fenofibrate (Fenofibrate 160 Mg Tablet) 160 mg PO DAILY [facility] Last Admin: 10/20/23 06:51 Dose: 160 mg Furosemide (Furosemide 20 Mg Tablet) 20 mg PO DAILY [facility]; Protocol Last Admin: 10/20/23 06:51 Dose: 20 mg Lisinopril (Lisinopril 10 Mg Tablet) 10 mg PO DAILY [facility]; Protocol Last Admin: 10/20/23 06:52 Dose: 10 mg Melatonin (Melatonin 3 Mg Tablet) 6 mg PO BEDTIME PRN PRN Reason: Insomnia Last Admin: 10/19/23 00:29 Dose: 6 mg Omeprazole (Omeprazole 40 Mg Capsule.Dr) 40 mg PO DAILY@0630 [facility] Last Admin: 10/20/23 05:47 Dose: 40 mg Ondansetron HCl (Ondansetron Hcl 4 Mg/2 Ml Vial) 4 mg IVPUSH Q8H PRN PRN Reason: Nausea and Vomiting Oxycodone HCl (Oxycodone Hcl Immed Release 5 Mg Tablet) 5 mg PO Q4H PRN PRN Reason: Pain, Moderate(Pain Scale 4-6) Last Admin: 10/20/23 09:30 Dose: 5 mg Sodium Chloride (0.9 % Sodium Chloride Flush 3 Ml Syringe) [facility] Last Admin: 10/20/23 06:48 Dose: 3 ml Exam Height,Weight and Vital Signs: Height 5 ft 9 in Weight 161.1 kg Last Vital Signs Temp 98.0 F 10/20/23 07:42 Pulse 88 10/20/23 07:42 Resp 18 10/20/23 07:42 BP 118/56 L 10/20/23 07:42 Pulse Ox 93 10/20/23 07:42 O2 Del Method Room Air 10/20/23 07:42 Pertinent Lab Results Pertinent Lab Results: Laboratory Tests 10/17/23 10/17/23 10/17/23 07:38 08:20 09:52 WBC 5.0 RBC 3.30 L D Hgb 10.3 L D Hct 30.8 L D MCV 93.3 MCH 31.2 MCHC 33.4 RDW 14.0 Plt Count 99 L MPV 12.0 Immature Gran % (Auto) 0.2 Neut % (Auto) 61.7 Lymph % (Auto) 26.7 [place] % (Auto) 7.6 Eos % (Auto) 3.2 Baso % (Auto) 0.6 Lymph # (Auto) 1.3 [place] # (Auto) 0.4 Eos # (Auto) 0.2 Baso # (Auto) 0.0 Abs Immat Gran (auto) 0.01 Absolute Neuts (auto) 3.1 Absolute Nucleated RBC 0.000 Nucleated RBC % (auto) 0.0 PT 13.4 H INR 1.1 Sodium 140 Potassium 4.5 Chloride 111 H Carbon Dioxide 22 Anion Gap 12 BUN 16 Creatinine 0.65 Estim Creat Clear Calc 170.5 Estimated GFR > 60 Random Glucose 99 Calcium 8.7 Magnesium 1.8 Total Bilirubin 1.6 H Direct Bilirubin 0.5 AST 51 H ALT 31 Alkaline Phosphatase 71 Total Protein 6.4 L Albumin 3.2 L Lipase 27 Urine Color Dark Yellow Urine Appearance Clear Urine pH 7.5 Ur Specific [place] >= 1.030 H Urine Protein Negative Urine Glucose (UA) Negative Urine Ketones Negative Urine Blood Negative Urine Nitrite Negative Ur Leukocyte Esterase Negative Stool Occult Blood Ethyl Alcohol < 10 Influenza Type A (PCR) NEGATIVE Influenza Type B (PCR) NEGATIVE RSV RNA Qual (PCR) NEGATIVE SARS-CoV-2 RNA (RT-PCR) NEGATIVE Blood Type O Positive Antibody Screen NEGATIVE 10/17/23 10/17/23 10/18/23 12:11 18:54 05:16 WBC 4.1 L 4.8 RBC 3.14 L 3.27 L Hgb 9.8 L 10.3 L 10.2 L Hct 29.4 L 31.2 L 31.3 L MCV 93.6 95.7 MCH 31.2 31.2 MCHC 33.3 32.6 RDW 14.1 14.3 Plt Count 82 L 92 L MPV 11.5 11.8 Immature Gran % (Auto) 0.4 Neut % (Auto) 56.4 Lymph % (Auto) 30.0 [place] % (Auto) 7.6 Eos % (Auto) 5.2 H Baso % (Auto) 0.4 Lymph # (Auto) 1.5 [place] # (Auto) 0.4 Eos # (Auto) 0.3 Baso # (Auto) 0.0 Abs Immat Gran (auto) 0.02 Absolute Neuts (auto) 2.7 Absolute Nucleated RBC 0.000 0.000 Nucleated RBC % (auto) 0.0 0.0 PT INR Sodium 140 Potassium 4.3 Chloride 110 H Carbon Dioxide 25 Anion Gap 9 L BUN 11 Creatinine 0.66 Estim Creat Clear Calc 188.8 Estimated GFR > 60 Random Glucose 95 Calcium 9.0 Magnesium Total Bilirubin Direct Bilirubin AST ALT Alkaline Phosphatase Total Protein Albumin Lipase Urine Color Urine Appearance Urine pH Ur Specific [place] Urine Protein Urine Glucose (UA) Urine Ketones Urine Blood Urine Nitrite Ur Leukocyte Esterase Stool Occult Blood POSITIVE Ethyl Alcohol Influenza Type A (PCR) Influenza Type B (PCR) RSV RNA Qual (PCR) SARS-CoV-2 RNA (RT-PCR) Blood Type Antibody Screen 10/19/23 05:21 WBC 4.8 RBC 3.28 L Hgb 10.3 L Hct 30.6 L MCV 93.3 MCH 31.4 MCHC 33.7 RDW 14.1 Plt Count 96 L MPV 11.5 Immature Gran % (Auto) 0.4 Neut % (Auto) 54.1 Lymph % (Auto) 30.8 [place] % (Auto) 9.1 Eos % (Auto) 4.8 H Baso % (Auto) 0.8 Lymph # (Auto) 1.5 [place] # (Auto) 0.4 Eos # (Auto) 0.2 Baso # (Auto) 0.0 Abs Immat Gran (auto) 0.02 Absolute Neuts (auto) 2.6 Absolute Nucleated RBC 0.000 Nucleated RBC % (auto) 0.0 PT INR Sodium Potassium Chloride Carbon Dioxide Anion Gap BUN Creatinine Estim Creat Clear Calc Estimated GFR Random Glucose Calcium Magnesium Total Bilirubin Direct Bilirubin AST ALT Alkaline Phosphatase Total Protein Albumin Lipase Urine Color Urine Appearance Urine pH Ur Specific [place] Urine Protein Urine Glucose (UA) Urine Ketones Urine Blood Urine Nitrite Ur Leukocyte Esterase Stool Occult Blood Ethyl Alcohol Influenza Type A (PCR) Influenza Type B (PCR) RSV RNA Qual (PCR) SARS-CoV-2 RNA (RT-PCR) Blood Type Antibody Screen Assessment and Plan Final Anesthetic Review History of Problems with Anesthesia: No
--- NOTE | 2023-10-20 11:41 | P.PNIM_ITS ---
Subjective Subjective Date of Service: 10/20/23 Interval History: No acute issues overnight. CIWA 0 Review of Systems Denies chest pain Denies shortness of breath Denies nausea vomiting diarrhea Denies fever chills Physical Exam 2 Vital Signs: Vital Signs: Last Vital Signs Temp 98.0 F 10/20/23 07:42 Pulse 88 10/20/23 07:42 Resp 18 10/20/23 07:42 BP 118/56 L 10/20/23 07:42 Pulse Ox 93 10/20/23 07:42 O2 Del Method Room Air 10/20/23 07:42 BMI result Body Mass Index 52.4 Const: Other: Awake alert no acute distress Resp: Other: Clear to auscultation bilaterally no rales rhonchi or wheezes Cardio: Other: No S4; positive S1-S2; no S3 murmurs rubs or gallops GI: Other: Obese nontender positive bowel sounds Extrem: Other: Bilateral edema Objective Data Active Medications Acetaminophen (Acetaminophen 325 Mg Tablet) 650 mg PO Q6H PRN PRN Reason: Pain, Mild (Pain Scale 1-3) Last Admin: 10/19/23 22:13 Dose: 650 mg Documented By: ODRISM Benzonatate (Benzonatate 100 Mg Capsule) 100 mg PO TID PRN PRN Reason: Cough Cyclobenzaprine HCl (Cyclobenzaprine Hcl 10 Mg Tablet) 10 mg PO TID PRN PRN Reason: Muscle Spasm Last Admin: 10/20/23 06:51 Dose: 10 mg Documented By: ROLO Docusate Sodium (Docusate Sodium 100 Mg Capsule) 100 mg PO DAILY PRN PRN Reason: Constipation Fenofibrate (Fenofibrate 160 Mg Tablet) 160 mg PO DAILY [facility] Last Admin: 10/20/23 06:51 Dose: 160 mg Documented By: ROLO Furosemide (Furosemide 20 Mg Tablet) 20 mg PO DAILY [facility]; Protocol Last Admin: 10/20/23 06:51 Dose: 20 mg Documented By: ROLO Lisinopril (Lisinopril 10 Mg Tablet) 10 mg PO DAILY [facility]; Protocol Last Admin: 10/20/23 06:52 Dose: 10 mg Documented By: ROLO Melatonin (Melatonin 3 Mg Tablet) 6 mg PO BEDTIME PRN PRN Reason: Insomnia Last Admin: 10/19/23 00:29 Dose: 6 mg Documented By: COLLEEN Omeprazole (Omeprazole 40 Mg Capsule.) 40 mg PO DAILY@0630 [facility] Last Admin: 10/20/23 05:47 Dose: 40 mg Documented By: LUANN Ondansetron HCl (Ondansetron Hcl 4 Mg/2 Ml Vial) 4 mg IVPUSH Q8H PRN PRN Reason: Nausea and Vomiting Oxycodone HCl (Oxycodone Hcl Immed Release 5 Mg Tablet) 5 mg PO Q4H PRN PRN Reason: Pain, Moderate(Pain Scale 4-6) Last Admin: 10/20/23 09:30 Dose: 5 mg Documented By: ROLO Sodium Chloride (0.9 % Sodium Chloride Flush 3 Ml Syringe) 3 ml IVFLUSH QSHIFT [facility] Last Admin: 10/20/23 06:48 Dose: 3 ml Documented By: ROLO Labs 10/19/23 05:21 10/18/23 05:16 Assessment and Plan (1) Acute upper GI bleed: Status: Acute (2) Cirrhosis: Status: Acute (3) Hypertension: Status: Acute Plan 58-year-old male with a PMH significant for HTN, HLD, GERD,?and alcoholic cirrhosis with portal hypertension who presents to the ED?for evaluation of lightheadedness and dizziness with fall at home. Pt was treated with a thiamine, Protonix, IVF, Tdap, and Mag sulfate. Pt will be admitted to the hospital for treatment and further evaluation of likely upper GI bleed. 1. Upper GI bleed -hemoglobin remains stable. No active bleeding -for complete EGD with anesthesia this a.m. -continue PPI 2.Acute right 6th and 7th rib fractures -increase frequency of oxycodone -p.r.n. Tylenol 3.Cirrhosis likely alcohol-induced no acute decompensation -stable and well compensated at present time -follow clinically 4.Chronic thrombocytopenia -stable -follow daily CBC 5.HTN -acceptable control on current therapies -adjust as indicated Full Code Compression boots Pt will require continued inpatient hospitalization for anemia will require close monitoring of blood levels and further evaluation by Gastroenterology with repeat endoscopy on Friday. Quality Stroke Does the patient have a stroke diagnosis?: No VTE Prior VTE?: No VTE Risk Level:: Medical - moderate - high VTE Device Contraindication: N/A - Device Ordered VTE Drug Contraindication: Treatment Not Indicated
--- NOTE | 2023-10-20 12:36 | MHC.CM.PN ---
EMR REVIEWED, PER MULTIDISCIPLINARY ROUNDS PT NOT YET READY FOR DC, GI PENDING, ANTIC PT WILL BE ABLE TO DC HOME NO SERVICES ONCE MEDICALLY CLEARED, CM WILL CONT TO FOLLOW DC NEEDS.
[2023-10-20] MEDS: Lactated Ringers 1,000 ML 100 ML IVCONT (13:42)
--- NOTE | 2023-10-20 14:06 | MHC.SHP ---
Pre-Procedural Eval Section A - 24 Hr Update-Section A only Date of Service: 10/20/23 The patient is an INPATIENT: Yes Changes since office visit: Yes New Medical Problems, Yes Changes in Medication and Yes Patient answered all questions; No Cold of Flu in the past 2 weeks The patient has been examined within 24 hours of the surgical procedure. The History & Physical has been completed within 30 days and I have reviewed it.: Yes Section B - Complete if H&P > 30 days Chief Complaint: Upper GI Bleed Allergies: Allergies Allergy/AdvReac Type Severity Reaction Status Date / Time No Known Allergies Allergy Verified 10/17/23 06:36 [No Known Allergies*] Plan Diagnosis/Plan: Unchanged I have reviewed the history and physical and performed a pertinent physical examination on my patient. No changes have occurred unless specified. Time Spent With Patient Time: Total time managing care of this patient today ____ minutes.
--- NOTE | 2023-10-20 15:00 | MHC.RECOVRN ---
Met with pt to follow up and inform pt of [facility] intake appt on 10/21 at 1:30PM. Pt awake, alert, easily engages in conversation, also present. Pt and aware of appt Friday. Pt is currently receiving oxycodone for pain, not currently appropriate for naltrexone initiation. Pt denies questions or concerns for t/w.
--- NOTE | 2023-10-20 15:18 | W.PM.OPN ---
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 Malcolm Valente MD Anesthesia:?GA with endotracheal intubation (Dr Demarco & Katharine Rubio) UPPER ENDOSCOPY Consent: Indications for the procedure and potential complications of bleeding, perforation, reaction to medications and missed diagnosis were discussed with the patient and informed consent was obtained. Instrument: Olympus GIF H 190 mid size upper endoscope Monitoring: Vital signs and clinical assessment, continuous EKG monitoring, Pulse oximetry, Carbon Dioxide monitoring and blood pressure monitoring were done throughout the procedure. Procedure: The patient was placed in the left lateral decubitis position and pre-procedure medications were administered and a bite block was placed. The endoscope was inserted into the mouth and advanced under direct vision to the third part of duodenum. A careful inspection was made as the upper endoscope was withdrawn including a retroflexed examination of the proximal stomach; Findings and interventions are described below. Findings: Larynx: Normal Esophagus: GE junction at 40 cms. Grade 2 four column nonbleeding esophageal varices from 30 to 40 cms without high risk bleeding stigmata. Stomach: Mosaic appearance of gastric mucosa consistent with severe portal gastropathy. 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 GAVE was treated with APC Prominent gastric folds versus non-bleeding gastric varices in the fundus (without high risk stigmata for bleeding) Grade 2 flap valve on retroflexed examination of the cardia. Duodenum: Normal bulb and descending duodenum Intervention: None Impression and Post Procedure Diagnosis: Endoscopy Findings: ESOPHAGUS: GE junction at 40 cms. Grade 2 four column nonbleeding esophageal varices from 30 to 40 cms without high risk bleeding stigmata. STOMACH: Mosaic appearance of gastric mucosa consistent with severe portal gastropathy. 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 GAVE was treated with APC Prominent gastric folds versus non-bleeding gastric varices in the fundus (without high risk stigmata for bleeding) Anemia is likely due to slow GI blood loss from GAVE over the past several weeks. Plan: 1. Pt can resume a regular diet tonight and discharged home on PO Omeprazole once daily. 2. Schedule a FU appt in the GI clinic with Dr Valente 3. Repeat EGD in 3-4 months to FU on GAVE if pt develops recurrent anemia 4. Needs ETOH rehab to stop drinking Above findings were reviewed with the patient.
--- NOTE | 2023-10-20 23:18 | PC.RT ---
pt placed on sleep study rn aware
[2023-10-21 00:55] VITALS: RESP 18
[2023-10-21] MEDS: Lactated Ringers 1,000 ML 100 ML IVCONT (00:55)
[2023-10-21 04:00] VITALS: BP 120/56; PULSE 86; RESP 20; TEMP 36.3; O2SAT 93
[2023-10-21] MEDS: Omeprazole 40 MG CAPSULE.DR PO (05:55)
[2023-10-21 05:57] LABS: MANUAL DIFF FLAG NO
[2023-10-21 06:02] LABS: Basophils Percent Auto 0.6 % (0-2); Eosinophils Absolute Auto 0.2 X10*3/uL (0.0-0.4); Eosinophils Percent Auto 3.6 % (0-4); Hematocrit 30.2 % (42.0-52.0); Hemoglobin 10.2 g/dl (14.0-18.0); Imm Gran Abs Auto 0.02 X10*3/uL (0.00-0.03); Imm Gran Pct Auto 0.4 % (0.0-0.4); Lymphocytes Absolute Auto 1.3 X10*3/uL (1.2-4.9); Lymphocytes Percent Auto 25.2 % (20-40); Mean Corpuscular HGB Conc 33.8 g/dl (31.0-36.0); Mean Corpuscular Hemoglobin 31.6 pg (27.0-33.0); Mean Corpuscular Volume 93.5 fL (80.0-98.0); Mean Platelet Volume 11.6 fL (9.4-12.4); Monocytes Absolute Auto 0.4 X10*3/uL (0.1-1.2); Monocytes Percent Auto 8.1 % (2-11); Neutrophils Absolute Auto 3.3 x10*3/uL (2.0-8.3); Neutrophils Percent Auto 62.1 % (45-73); Platelet Count 109 X10*3/uL (160-400); Red Blood Count 3.23 X10*6/uL (4.60-5.80); White Blood Count 5.3 X10*3/uL (4.8-10.8)
--- NOTE | 2023-10-21 06:08 | PC.RT ---
pt off sleep study
[2023-10-21 06:32] LABS: Alanine Aminotransferase 21 U/L (0-40); Albumin Level 3.2 g/dL (3.5-5.0); Alkaline Phosphatase 70 U/L (39-117); Anion Gap 11 (12-20); Aspartate Amino Transferase 32 U/L (5-37); Bilirubin Total 1.4 mg/dL (0.0-1.0); Blood Urea Nitrogen 18 mg/dL (9-16); Carbon Dioxide 25 mmol/L (22-29); Chloride 106 mmol/L (96-108); Creatinine Clr Calc Pharmacy 191.8; Estimated Glomerular Filt Rate > 60; Glucose Fasting 98 mg/dL (60-99); Potassium 4.2 mmol/L (3.3-5.1); Sodium 138 mmol/L (135-145); Total Protein 6.1 g/dL (6.5-8.0)
[2023-10-21 07:40] VITALS: BP 118/63; PULSE 102; RESP 20; TEMP 36.8; O2SAT 93
[2023-10-21] MEDS: Fenofibrate 160 MG TABLET PO (09:22)
[2023-10-21] MEDS: lisinopriL 10 MG TABLET PO (09:22)
[2023-10-21] MEDS: 0.9 % Sodium Chloride Flush 3 ML SYRINGE IVFLUSH (09:22)
[2023-10-21] MEDS: Furosemide 20 MG TABLET PO (09:23)
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
--- NOTE | 2023-10-21 12:39 | MHC.CM.PN ---
PT MEDICALLY CLEARED FOR DC HOME SELF-CARE W/[facility] FOR NEW CPAP, PT'S WILL TRANSPORT
--- NOTE | 2023-10-21 13:01 | HO.POSTANES ---
Post Anesthesia Evaluation Post Anesthesia Evaluation Date of Service: 10/21/23 Vital Signs: Vital Signs Temp Pulse Resp BP Pulse Ox O2 Del Method 10/21/23 07:40 98.3 F 102 H 20 118/63 93 Room Air 10/21/23 04:00 97.4 F 86 20 120/56 L 93 Room Air Anesthesia: General Mental Status: Awake Pain Control: Satisfactory Nausea/Vomiting: None Hydration: Adequate Anesthesia-Related Issues: No Anes. Related Issues
== END 2023-10-21 13:35 | disposition home or self-care (01) | DRG 377 ==
LOC: HO.ED 13:34 → HO.EDOVER 14:51 → HO.S3 16:02
PROVIDERS: Internal Medicine Gastroenterology; Admitting Provider Student in an Organized Health Care Education/Training Program; Emergency Provider Emergency Medicine; PCP Internal Medicine; Visit Provider Hospitalist
PROC: 0DJ08ZZ Inspection of Upper Intestinal Tract, Via Natural or Artificial Opening Endoscopic (ICD-10-PCS; CPT 43235; principal; 2023-10-17 16:20)
DX: K31.811 Angiodysplasia of stomach and duodenum with bleeding (principal); I85.11 Secondary esophageal varices with bleeding; K76.6 Portal hypertension; S22.41XA Multiple fractures of ribs, right side, initial encounter for closed fracture; K70.30 Alcoholic cirrhosis of liver without ascites; K76.0 Fatty (change of) liver, not elsewhere classified; S01.81XA Laceration without foreign body of other part of head, initial encounter; E78.5 Hyperlipidemia, unspecified; K31.89 Other diseases of stomach and duodenum; D69.6 Thrombocytopenia, unspecified; D50.0 Iron deficiency anemia secondary to blood loss (chronic); I10 Essential (primary) hypertension; H11.32 Conjunctival hemorrhage, left eye; Z71.3 Dietary counseling and surveillance; K21.9 Gastro-esophageal reflux disease without esophagitis; K70.31 Alcoholic cirrhosis of liver with ascites; V89.2XXA Person injured in unspecified motor-vehicle accident, traffic, initial encounter; Z20.822 Contact with and (suspected) exposure to COVID-19; Z79.899 Other long term (current) drug therapy
CPT/HCPCS: 0241U; 36415; 70450; 70486; 71260; 72125; 74177; 80048; 80053; 80076; 80307; 81003; 82272; 83690; 83735; 85014; 85018; 85025; 85027; 85610; 86850; 86900; 86901; 88305; 88313; 88342; 90715; 93005; 99285; C9113; J0171; J0330; J2250; J2371; J2704; J3010; J3411; J3475; J7120; Q9967

== ENCOUNTER → 2023-10-17 12:31 | Outpatient (BNV) | payer OTHER, SELFPAY | PROVIDERS: Admitting Provider Student in an Organized Health Care Education/Training Program; Emergency Provider Emergency Medicine; PCP Internal Medicine; Visit Provider Internal Medicine | DX: R42 Dizziness and giddiness (principal); K92.2 Gastrointestinal hemorrhage, unspecified; R94.31 Abnormal electrocardiogram [ECG] [EKG] | CPT/HCPCS: 93010 ==

== ENCOUNTER → 2023-10-17 14:38 | Outpatient (BNV) | payer OTHER, SELFPAY | PROVIDERS: Admitting Provider Student in an Organized Health Care Education/Training Program; Emergency Provider Emergency Medicine; PCP Internal Medicine; Visit Provider Internal Medicine Gastroenterology | DX: I85.00 Esophageal varices without bleeding (principal); K31.89 Other diseases of stomach and duodenum; K31.819 Angiodysplasia of stomach and duodenum without bleeding | CPT/HCPCS: 43239; 43270; 99222 ==

== ENCOUNTER → 2023-10-17 14:38 | Outpatient (BNV) | payer OTHER, SELFPAY | PROVIDERS: Admitting Provider Student in an Organized Health Care Education/Training Program; Emergency Provider Emergency Medicine; PCP Internal Medicine; Visit Provider Student in an Organized Health Care Education/Training Program | DX: K92.2 Gastrointestinal hemorrhage, unspecified (principal); K70.30 Alcoholic cirrhosis of liver without ascites; I10 Essential (primary) hypertension | CPT/HCPCS: 99223; 99232; 99239 ==

== ENCOUNTER 2023-11-04 16:29 | Outpatient (AMB) | payer OTHER, SELFPAY ==
[2023-11-04 17:12] VITALS: BP 130/85; PULSE 90; RESP 24; O2SAT 98
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
== END 2023-11-04 17:30 | disposition home or self-care (01) ==
PROVIDERS: PCP Internal Medicine; Visit Provider Nurse Practitioner Family
DX: F10.21 Alcohol dependence, in remission (principal)
CPT/HCPCS: 99204

== ENCOUNTER → 2023-11-04 16:29 | Outpatient (BNVA) | payer OTHER, SELFPAY | PROVIDERS: PCP Internal Medicine; Visit Provider Nurse Practitioner Family | DX: F10.21 Alcohol dependence, in remission (principal) | CPT/HCPCS: 80305 ==

== ENCOUNTER 2023-11-18 08:21 | Outpatient (AMB) | payer OTHER, SELFPAY ==
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
[2023-11-18 08:40] VITALS: BP 112/60; PULSE 90; O2SAT 97; BMI 50.4
== END 2023-11-18 09:34 | disposition home or self-care (01) ==
PROVIDERS: PCP Internal Medicine; Visit Provider Internal Medicine
DX: F10.21 Alcohol dependence, in remission (principal); D69.6 Thrombocytopenia, unspecified; G47.33 Obstructive sleep apnea (adult) (pediatric)
CPT/HCPCS: 99214

== ENCOUNTER 2023-11-20 15:59 | Outpatient (AMB) | payer OTHER, SELFPAY ==
--- NOTE | 2023-11-20 16:04 | MHC.AM.SUB ---
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 Saw his PCP on Friday, has pending labwork to get done that t/w reminded him about States his sleep has become much better with CPAP use Feels as though he is eating better, and has lost a little weight pants fit a little looser [facility] Medical History (Updated 11/18/23 @ 09:38 by Go Rangel MD) Obstructive sleep apnea Thrombocytopenia Cirrhosis Closed rib fracture Acute alcoholic liver disease Gallstones Diarrhea Cholelithiasis Fatty liver Lyme disease GERD (gastroesophageal reflux disease) Vitamin D deficiency Impaired glucose tolerance Hypertriglyceridemia Hypertension Obesity (BMI 30-39.9) Surgical History (Updated 11/18/23 @ 08:48 by FIDEL Westbrook) History of endoscopy No pertinent past surgical history Social History (Updated 11/18/23 @ 08:49 by FIDEL Westbrook) Household Members: Family Housing: House Do you presently have visiting nurse or other home services: No Alcohol intake: current Alcohol intake frequency: does not drink Alcohol type: beer Patient Tobacco Use Status: Never used Tobacco e-Cigarette/Vaping Use: Never Used Second Hand Smoke Exposure: No Substance Use Type: Marijuana service: No Current occupational status: employed Current occupational exposures/hazards: No Cognitive needs: No Hearing needs: No Vision needs: Yes (Glasses) Review of Systems Const Reports as per HPI Physical Exam Vital Signs: Last Vital Signs Pulse 95 11/20/23 16:12 Pulse Ox 96 11/20/23 16:12 Oxygen Delivery Method Room Air 11/20/23 16:12 Const General: cooperative and no acute distress Resp Effort & Inspection: normal respiratory effort Psych Appearance: grossly normal Mental Status: mental status grossly normal Speech and movement: Normal speech and movement present Affect: normal affect Attitude: cooperative Thought process: Normal thought process present Assessment & Plan Assessment & Plan (1) Alcohol use disorder, severe, in early remission: Code(s): F10.21 - Alcohol dependence, in remission Category: Medical Plan: -He has continue to remain abstinent with no JOLANTA, and would like to continue doing so -Discussed with him if he begins to feel cravings, to reach out to clinic to begin a conversation of potentially starting JOLANTA -[facility] referral still pending -FOllow up 1 month
[2023-11-20 16:12] VITALS: PULSE 95; O2SAT 96
== END 2023-11-20 16:46 | disposition home or self-care (01) ==
PROVIDERS: PCP Internal Medicine; Visit Provider Nurse Practitioner Family
DX: F10.21 Alcohol dependence, in remission (principal)
CPT/HCPCS: 99213

== ENCOUNTER → 2023-11-20 15:59 | Outpatient (BNVA) | payer OTHER, SELFPAY | PROVIDERS: PCP Internal Medicine; Visit Provider Nurse Practitioner Family | DX: F10.21 Alcohol dependence, in remission (principal) ==

== ENCOUNTER 2023-12-06 10:37 | Outpatient (REF) | payer OTHER, SELFPAY ==
[2023-12-06 11:23] LABS: Hematocrit 36.3 % (42.0-52.0); Hemoglobin 11.8 g/dl (14.0-18.0); Mean Corpuscular HGB Conc 32.5 g/dl (31.0-36.0); Mean Corpuscular Hemoglobin 29.5 pg (27.0-33.0); Mean Corpuscular Volume 90.8 fL (80.0-98.0); Platelet Count 112 X10*3/uL (160-400); White Blood Count 4.6 X10*3/uL (4.8-10.8)
[2023-12-06 11:24] LABS: Appearance Urine Clear; Color Urine Yellow; Glucose Urine UA Negative (Negative); Leukocyte Esterase Urine Negative (Negative); Nitrite Urine Negative (Negative); PH 8.5 (5.0-9.0); Urine Blood Negative (Negative); Urine Ketones Negative (Negative); Urine Protein Negative (Neg-Trace)
[2023-12-06 11:58] LABS: Alanine Aminotransferase 34 U/L (0-40); Albumin Level 3.9 g/dL (3.5-5.0); Alkaline Phosphatase 111 U/L (39-117); Anion Gap 12 (12-20); Aspartate Amino Transferase 43 U/L (5-37); Bilirubin Direct 0.4 mg/dL (0.0-0.5); Bilirubin Total 0.7 mg/dL (0.0-1.0); Blood Urea Nitrogen 17 mg/dL (9-16); Calcium 9.3 mg/dL (8.4-10.2); Carbon Dioxide 22 mmol/L (22-29); Chloride 109 mmol/L (96-108); Cholesterol 149 mg/dL (<200); Estimated Glomerular Filt Rate > 60; Glucose Random 101 mg/dL (60-115); HDL Cholesterol 64 mg/dL (>40); LDL Cholesterol Calculated 71 mg/dL (<100); Potassium 4.2 mmol/L (3.3-5.1); Sodium 139 mmol/L (135-145); Total Protein 7.2 g/dL (6.5-8.0); Triglycerides 71 mg/dL (<150)
[2023-12-06 12:07] LABS: Erythrocyte Sedimentation Rate 20 MM/HR (0-15)
[2023-12-06 12:16] LABS: Thyroid Stimulating Hormone 0.76 uIU/mL (0.32-4.0)
== END 2023-12-06 10:38 | disposition home or self-care (01) ==
LOC: HO.LAB 10:37
PROVIDERS: PCP Internal Medicine; Visit Provider Internal Medicine
DX: F10.21 Alcohol dependence, in remission (principal); D69.6 Thrombocytopenia, unspecified; Z13.6 Encounter for screening for cardiovascular disorders
CPT/HCPCS: 36415; 80048; 80061; 80076; 81003; 84443; 85027; 85652

== ENCOUNTER 2023-12-18 15:55 | Outpatient (AMB) | payer OTHER, SELFPAY ==
[2023-12-18 15:55] VITALS: BP 138/72; PULSE 101; O2SAT 97
--- NOTE | 2023-12-18 15:55 | MHC.AM.SUB ---
Vital Signs 12/18/23 15:55 BP 138/72 Blood Pressure Location Lt brachial Position Sitting Pulse 101 H Pulse Source Pulse Oximeter Pulse Oximetry (%) 97 Oxygen Delivery Method Room Air Intake Visit Reasons: MAT Visit Allergies No Known Allergies [No Known Allergies*] Allergy (Verified 11/18/23 09:32) HPI HPI MAT Visit: Details: Patient presents for AUD treatment and follow up Report he continues to abstain from alcohol Recently found out one of his cousins has been in long-term recovery Has PCP appt in January for f/u Reports someone from GI reached out to him recently for follow up and he has been unable to connect with them Has made multiple healthy lifestyle changes: decreased sugar intake, taking walks for exercise PFS Medical History (Updated 11/18/23 @ 09:38 by Go Rangel MD) Obstructive sleep apnea Thrombocytopenia Cirrhosis Closed rib fracture Acute alcoholic liver disease Gallstones Diarrhea Cholelithiasis Fatty liver Lyme disease GERD (gastroesophageal reflux disease) Vitamin D deficiency Impaired glucose tolerance Hypertriglyceridemia Hypertension Obesity (BMI 30-39.9) Surgical History (Updated 11/18/23 @ 08:48 by FIDEL Westbrook) History of endoscopy No pertinent past surgical history Social History (Updated 11/18/23 @ 08:49 by FIDEL Westbrook) Household Members: Family Housing: House Do you presently have visiting nurse or other home services: No Alcohol intake: current Alcohol intake frequency: does not drink Alcohol type: beer Patient Tobacco Use Status: Never used Tobacco e-Cigarette/Vaping Use: Never Used Second Hand Smoke Exposure: No Substance Use Type: Marijuana service: No Current occupational status: employed Current occupational exposures/hazards: No Cognitive needs: No Hearing needs: No Vision needs: Yes (Glasses) Review of Systems Const Reports as per HPI Physical Exam Vital Signs: Last Vital Signs Pulse 101 H 12/18/23 15:55 BP 138/72 12/18/23 15:55 Pulse Ox 97 12/18/23 15:55 Oxygen Delivery Method Room Air 12/18/23 15:55 Const General: cooperative and no acute distress Resp Effort & Inspection: normal respiratory effort and able to speak in complete sentences Psych Appearance: grossly normal Mental Status: mental status grossly normal Speech and movement: Normal speech and movement present Affect: normal affect Attitude: cooperative Thought process: Normal thought process present Assessment & Plan Assessment & Plan (1) Alcohol use disorder, severe, in early remission: Code(s): F10.21 - Alcohol dependence, in remission Category: Medical Plan: -He has continue to remain abstinent with no JOLANTA, and would like to continue doing so -Discussed with him if he begins to feel cravings, to reach out to clinic to begin a conversation of potentially starting JOLANTA -Follow up 6 weeks
== END 2023-12-18 16:39 | disposition home or self-care (01) ==
PROVIDERS: PCP Internal Medicine; Visit Provider Nurse Practitioner Family
DX: F10.21 Alcohol dependence, in remission (principal)
CPT/HCPCS: 99213

== ENCOUNTER → 2023-12-18 15:55 | Outpatient (BNVA) | payer OTHER, SELFPAY | PROVIDERS: PCP Internal Medicine; Visit Provider Nurse Practitioner Family | DX: F10.21 Alcohol dependence, in remission (principal) ==

== ENCOUNTER 2024-01-30 10:33 | Outpatient (AMB) | payer OTHER, SELFPAY ==
--- NOTE | 2024-01-30 10:44 | A.OFFVIS_ITS ---
Intake Visit Reasons: Re establish care Cystitis w/o hematuria (old pt) Intake Note: Patient is present for Re establish care Cystitis w/o hematuria Urology Medication:none Antibiotic Allergy:none Blood Thinner:none Ip Paralegal Required: No Allergies No Known Allergies [No Known Allergies*] Allergy (Verified 01/30/24 10:46) HPI Comments Details: Antonio is a pleasant male. He is a patient of Dr. Rajan. 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 Currently has minimal symptoms PFSH Medical History (Updated 01/30/24 @ 13:29 by Francisco Urias MD) Obstructive sleep apnea Thrombocytopenia Cirrhosis Closed rib fracture Acute alcoholic liver disease Gallstones Diarrhea Cholelithiasis Fatty liver Lyme disease GERD (gastroesophageal reflux disease) Vitamin D deficiency Impaired glucose tolerance Hypertriglyceridemia Hypertension Obesity (BMI 30-39.9) Surgical History (Updated 11/18/23 @ 08:48 by FIDEL Westbrook) History of endoscopy No pertinent past surgical history Social History (Updated 11/18/23 @ 08:49 by FIDEL Westbrook) Household Members: Family Housing: House Do you presently have visiting nurse or other home services: No Alcohol intake: current Alcohol intake frequency: does not drink Alcohol type: beer Patient Tobacco Use Status: Never used Tobacco e-Cigarette/Vaping Use: Never Used Second Hand Smoke Exposure: No Substance Use Type: Marijuana service: No Current occupational status: employed Current occupational exposures/hazards: No Cognitive needs: No Hearing needs: No Vision needs: Yes (Glasses) Review of Systems Const Denies chills and Denies fever(s) Card Reports no additional complaints and Denies syncope Resp Denies cough GI Denies abdominal pain and Denies heartburn Reports as per HPI and Denies change in libido Neuro Denies syncope Psych Denies change in libido Endo Denies change in libido Physical Exam Const General: cooperative, healthy appearing, comfortable and no acute distress Orientation/consciousness: patient oriented x3 HEENT Face and sinus: Yes normal facial exam Mouth: moist mucous membranes Neck Neck: Yes normal visual inspection, Yes full ROM and Yes trachea midline Chest Chest palpation & inspection: normal inspection of the chest Resp Effort & Inspection: normal respiratory effort, able to speak in complete sentences and no respiratory distress GI Inspection: Yes normal to inspection Back/Spine/Pelvis Cervical Spine: normal cervical lordosis Thoracic/Lumbar Spine: thoracic and lumbar spine normal to inspection Skin General skin exam: no rashes or lesions noted Neuro General: patient oriented x3, gait normal, tone normal and moves all extremities Extrem General: Yes normal to inspection and Yes capillary refill normal Results AMB Urinalysis, Automated UA Leukoctes 0 Bony/uL Last Edit by EDDI Colbert on 01/30/24 10:54 UA Nitrite Negative Last Edit by Chato Gordon CCM on 01/30/24 10:54 UA Urobilinogen 1 mg/dL Last Edit by Chato Gordon CCM on 01/30/24 10:54 UA Protein 15 mg/dL Last Edit by Chato Gordon [facility] on 01/30/24 10:54 UA pH 7.0 Last Edit by Chato Gordon CCM on 01/30/24 10:54 UA Blood 0 Migel/uL Last Edit by Chato Gordon CCM on 01/30/24 10:54 UA Specific Hoffman 1.015 Last Edit by Chato Gordon [facility] on 01/30/24 10: 54 UA Ketone Negative Last Edit by EDDI Colbert on 01/30/24 10:54 UA Bilirubin 0 mg/dL Last Edit by Chato Gordon CCM on 01/30/24 10:54 UA Glucose 0 mg/dL Last Edit by Chato Gordon [facility] on 01/30/24 10:54 Results Reviewed Results Reviewed: Laboratory Last Values Urine pH (Auto) 7.0 01/30/24 10:54 Specific Hoffman (Auto) 1.015 01/30/24 10:54 Urine Protein (Auto) 15 mg/dL 01/30/24 10:54 Glucose (UA)(Auto) 0 mg/dL 01/30/24 10:54 Urine Ketones (Auto) Negative 01/30/24 10:54 Urine Blood (Auto) 0 Migel/uL 01/30/24 10:54 Urine Nitrite (Auto) Negative 01/30/24 10:54 Urine Bilirubin (Auto) 0 mg/dL 01/30/24 10:54 Urine Urobilinogen (Auto) 1 mg/dL 01/30/24 10:54 Leukocyte Esterase (Auto) 0 Bony/uL 01/30/24 10:54 Assessment & Plan Assessment & Plan (1) Cystitis: Code(s): N30.90 - Cystitis, unspecified without hematuria Category: Medical Plan One year follow-up Orders: Orders AMB Urinalysis Automated Today Z13.9 - Encounter for screening, unspecified Patient Instructions: Imaging studies, laboratory and physical exam results were discussed and reviewed in detail. No major barriers to patient understanding were identified. An opportunity to ask questions regarding the treatment plan was provided. All questions were answered. The patient expressed understanding and agreement with the above treatment plan. The patient is aware they should contact our office by phone for worsening of their current condition or the appearance of new urologic symptoms. Compliance is encouraged with any medications and followup testing that is ordered. It is a privilege to participate in the urologic care of your patient. If you have any questions or concerns regarding treatment for the above conditions, or other urologic issues, please do not hesitate to contact me. The office telephone contact is [phone]. This note is constructed using voice recognition software. While every effort has been made to ensure accuracy chimney supervisor brick errors may have been included. Yours sincerely, Dr Francisco Urias MD, [facility] - Urology Providers of Expert, Compassionate Care for the Genitourinary System Coding Level of Care Code New Pt Level 3 (80992) Diagnoses Cystitis N30.90
== END 2024-01-30 11:13 | disposition home or self-care (01) ==
PROVIDERS: PCP Internal Medicine; Visit Provider Urology
DX: N30.90 Cystitis, unspecified without hematuria (principal); Z13.9 Encounter for screening, unspecified
CPT/HCPCS: 99203

== ENCOUNTER → 2024-01-30 10:33 | Outpatient (BNVA) | payer OTHER, SELFPAY | PROVIDERS: PCP Internal Medicine; Visit Provider Urology | DX: N30.90 Cystitis, unspecified without hematuria (principal) | CPT/HCPCS: 81003 ==

== ENCOUNTER 2024-02-18 08:26 | Outpatient (AMB) | payer OTHER, SELFPAY ==
--- NOTE | 2024-02-18 08:39 | A.OFFPC_ITS ---
Vital Signs 02/18/24 08:40 Height 5 ft 9 in Weight 319 lb 6 oz BMI 47.2 BP 110/64 Blood Pressure Location Lt brachial Position Sitting Pulse 73 Pulse Source Pulse Oximeter Pulse Oximetry (%) 96 Oxygen Delivery Method Room Air Intake Visit Reasons: 3mth f/u Intake Note: Patient is here to follow up on SARA, Hypertriglyceridemia. Salary And Wage Administrator Required: No Benzol Still Operator: Not Required per policy Accompanied by: Self / Same As Patient Allergies No Known Allergies [No Known Allergies*] Allergy (Verified 02/18/24 09:10) Medication List - Last Reconciled 02/18/24 by Go Rangel MD celecoxib 50 mg PO BID fenofibrate 160 mg PO DAILY furosemide 20 mg PO DAILY lisinopril 10 mg PO DAILY omeprazole 40 mg PO DAILY@0630 walker As directed Tobacco use date assessed: 02/18/24 Dental Screening Dental Screen Date: 11/18/23 HPI 3mth f/u HPI Details 59-year-old male presents to the office to discuss his chronic medical conditions. Patient continues to abstain from alcohol. He had followed up with a urologist and and the bladder issues have all subsided. Patient continues to do well on the CPAP machine that was prescribed to him in the hospital. I have instructed him to let the suppliers no to send the renewal forms to me. Patient reports weakness and pain in both his lower extremity. After walking 20 minutes, he feels unstable and wobbly in both knees. He is able to climb and come down stairs. No history of fall. Patient reports that he has lost 20 lb. [facility] Medical History (Updated 02/18/24 @ 09:14 by Go Rangel MD) Morbid obesity with BMI of 40.0-44.9, adult Obstructive sleep apnea Thrombocytopenia Cirrhosis Closed rib fracture Acute alcoholic liver disease Gallstones Diarrhea Cholelithiasis Fatty liver Lyme disease GERD (gastroesophageal reflux disease) Vitamin D deficiency Impaired glucose tolerance Hypertriglyceridemia Hypertension Surgical History History of endoscopy No pertinent past surgical history Social History Household Members: Family Housing: House Do you presently have visiting nurse or other home services: No Alcohol intake: current Alcohol intake frequency: does not drink Alcohol type: beer Patient Tobacco Use Status: Never used Tobacco e-Cigarette/Vaping Use: Never Used Second Hand Smoke Exposure: No Substance Use Type: Marijuana service: No Current occupational status: employed Current occupational exposures/hazards: No Cognitive needs: No Hearing needs: No Vision needs: Yes (Glasses) Questionnaire Thrive Questionnaire Date Thrive assessed: 10/18/23 SIM-7 AMB Questionnaire SIM-7 Date SIM - 7 assessed: 11/18/23 Source: Developed by Drs. Darien Kendrick, Magdalene Vargas, Reed Gee and colleagues, with an educational raisa from [employer] Physical exam (Primary Care) Vital Signs: Last Vital Signs Pulse 73 02/18/24 08:40 BP 110/64 02/18/24 08:40 Pulse Ox 96 02/18/24 08:40 Oxygen Delivery Method Room Air 02/18/24 08:40 Care Plan Goal for BP management: Blood pressure is in range. BMI result Body Mass Index 47.2 BMI Assessment/Plan discussion: High (1 lb per week weight loss suggested.) BMI High, discussed plan: lifestyle, weight reduction and dietary Tobacco/Smoking Status: Tobacco use Status Tobacco use date assessed 02/18/24 02/18/24 08:46 Patient Tobacco Use Status Never used Tobacco 02/18/24 08:46 e-Cigarette/Vaping Use Never Used 02/18/24 08:46 Thrive Assessment: Date of Thrive Assessment Date Thrive assessed 10/18/23 02/18/24 08:46 Const General: cooperative and healthy appearing Nutritional Appearance: well nourished Orientation/consciousness: patient oriented x3 Limitations: no limitations HENMT Head: Yes normal to inspection Eyes General: appearance normal, both eyes and all related structures Neck Neck: Yes normal visual inspection Chest Chest palpation & inspection: normal palpation of entire chest wall Resp Effort & Inspection: normal respiratory effort Neuro General: patient oriented x3 Extrem Other: Right and left lower extremity: No obvious wasting of muscle. Motor strength is equal and 5/5. Full range of motion in the knees. Assessment and Plan Assessment & Plan (1) Obstructive sleep apnea: Code(s): G47.33 - Obstructive sleep apnea (adult) (pediatric) Plan: Continue to use the CPAP machine. (2) Alcohol use disorder, severe, in early remission: Code(s): F10.21 - Alcohol dependence, in remission Plan: Continues to be in remission. [facility] Continue to follow-up with them. (3) Morbid obesity with BMI of 40.0-44.9, adult: Code(s): E66.01 - Morbid (severe) obesity due to excess calories; Z68.41 - Body mass index [BMI] 40.0-44.9, adult Plan: Counseling on the importance of diet and exercise done. (4) Myalgia: Code(s): M79.10 - Myalgia, unspecified site Plan: Lyme, CK levels will be drawn. Physical therapy to strengthen the lower extremity has been ordered. Medications: Refilled celecoxib 50 mg PO BID 60 caps 0RF lisinopril 10 mg PO DAILY 90 tabs 1RF omeprazole 40 mg PO DAILY@0630 30 caps 1RF fenofibrate 160 mg PO DAILY 90 tabs 1RF Coding Level of Care Code Est Pt Level 4 (98269) Complex EM visit Add On G2211 Diagnoses Obstructive sleep apnea G47.33 Alcohol use disorder, severe, in early remission F10.21 Morbid obesity with BMI of 40.0-44.9, adult E66.01; Z68.41 Myalgia M79.10
[2024-02-18 08:40] VITALS: BP 110/64; PULSE 73; O2SAT 96; BMI 47.2
== END 2024-02-18 09:05 | disposition home or self-care (01) ==
PROVIDERS: PCP Internal Medicine; Visit Provider Internal Medicine
DX: G47.33 Obstructive sleep apnea (adult) (pediatric) (principal); F10.21 Alcohol dependence, in remission; E66.01 Morbid (severe) obesity due to excess calories; Z68.41 Body mass index [BMI] 40.0-44.9, adult; M79.10 Myalgia, unspecified site
CPT/HCPCS: 99214

== ENCOUNTER 2024-02-18 14:58 | Outpatient (AMB) | payer OTHER, SELFPAY ==
--- NOTE | 2024-02-18 15:06 | MHC.AM.SUB ---
Intake Visit Reasons: MAT Visit Allergies No Known Allergies [No Known Allergies*] Allergy (Verified 02/18/24 09:10) HPI HPI MAT Visit: Details: Has lost 20 lbs since October 13 Last drink October 12 discussed strategies he has been using to refrain from drinking discussed motivators [facility] Medical History (Updated 02/18/24 @ 09:14 by Go Rangel MD) Morbid obesity with BMI of 40.0-44.9, adult Obstructive sleep apnea Thrombocytopenia Cirrhosis Closed rib fracture Acute alcoholic liver disease Gallstones Diarrhea Cholelithiasis Fatty liver Lyme disease GERD (gastroesophageal reflux disease) Vitamin D deficiency Impaired glucose tolerance Hypertriglyceridemia Hypertension Surgical History History of endoscopy No pertinent past surgical history Social History Household Members: Family Housing: House Do you presently have visiting nurse or other home services: No Alcohol intake: current Alcohol intake frequency: does not drink Alcohol type: beer Patient Tobacco Use Status: Never used Tobacco e-Cigarette/Vaping Use: Never Used Second Hand Smoke Exposure: No Substance Use Type: Marijuana service: No Current occupational status: employed Current occupational exposures/hazards: No Cognitive needs: No Hearing needs: No Vision needs: Yes (Glasses) Review of Systems Const Reports as per HPI and Reports no additional complaints Physical Exam Const General: cooperative and no acute distress Psych Appearance: grossly normal Mental Status: mental status grossly normal Speech and movement: Normal speech and movement present Affect: normal affect Attitude: cooperative Thought process: Normal thought process present Assessment & Plan Assessment & Plan (1) Alcohol use disorder, severe, in early remission: Code(s): F10.21 - Alcohol dependence, in remission Category: Medical Plan: relapse prevention discussion follow up one month
== END 2024-02-18 16:15 | disposition home or self-care (01) ==
PROVIDERS: PCP Internal Medicine; Visit Provider Nurse Practitioner Psychiatric/Mental Health
DX: F10.21 Alcohol dependence, in remission (principal)
CPT/HCPCS: 99213

== ENCOUNTER → 2024-02-18 14:58 | Outpatient (BNVA) | payer OTHER, SELFPAY | PROVIDERS: PCP Internal Medicine; Visit Provider Nurse Practitioner Psychiatric/Mental Health | DX: F10.21 Alcohol dependence, in remission (principal) ==

== ENCOUNTER 2024-03-17 14:18 | Outpatient (REF) | payer OTHER, SELFPAY ==
[2024-03-17 16:50] LABS: Erythrocyte Sedimentation Rate 14 MM/HR (0-15)
[2024-03-20 09:28] LABS: Lyme Blot 1.65 index
[2024-03-20 15:10] LABS: Lyme Abs Screen POSITIVE
[2024-03-22 18:59] LABS: 18 KD (IgG) Band NON-REACTIVE; 23 KD (IgG) Band NON-REACTIVE; 23 KD (IgM) Band REACTIVE; 28 KD (IgG) Band NON-REACTIVE; 30 KD (IgG) Band NON-REACTIVE; 39 KD (IgM) Band NON-REACTIVE; 39KD (IgG) Band REACTIVE; 41 KD (IgM) Band NON-REACTIVE; 41KD (IgG) Band REACTIVE; 45 KD (IgG) Band NON-REACTIVE; 58 KD (IgG) Band REACTIVE; 66 KD (IgG) Band NON-REACTIVE; 93 KD (IgG) Band NON-REACTIVE; Lyme IgG Blot Interp NEGATIVE (NEGATIVE); Lyme IgM Blot Interp NEGATIVE (NEGATIVE)
== END 2024-03-17 14:19 | disposition home or self-care (01) ==
LOC: HO.LAB 14:18
PROVIDERS: PCP Internal Medicine; Visit Provider Internal Medicine
DX: M79.10 Myalgia, unspecified site (principal)
CPT/HCPCS: 36415; 82550; 85652; 86617; 86618

== ENCOUNTER 2024-03-24 13:56 | Outpatient (REF) | payer OTHER, SELFPAY ==
[2024-03-24 15:03] LABS: Hematocrit 37.5 % (42.0-52.0); Mean Corpuscular HGB Conc 34.7 g/dl (31.0-36.0); Mean Corpuscular Hemoglobin 30.5 pg (27.0-33.0); Mean Platelet Volume 12.3 fL (9.4-12.4); Red Blood Count 4.26 X10*6/uL (4.60-5.80); Red Cell Distribution Width 14.6 % (11.0-16.0)
[2024-03-24 15:05] LABS: Platelet Count 87 X10*3/uL (160-400)
[2024-03-24 15:43] LABS: Erythrocyte Sedimentation Rate 11 MM/HR (0-15)
[2024-03-24 15:57] LABS: Anion Gap 11 (12-20); Blood Urea Nitrogen 15 mg/dL (9-16); Calcium 9.7 mg/dL (8.4-10.2); Carbon Dioxide 22 mmol/L (22-29); Chloride 110 mmol/L (96-108); Estimated Glomerular Filt Rate > 60; Glucose Random 112 mg/dL (60-115); Potassium 4.1 mmol/L (3.3-5.1); Sodium 139 mmol/L (135-145)
[2024-03-26 17:18] LABS: Cyclic Citrullinated Peptide <16 UNITS
== END 2024-03-24 13:57 | disposition home or self-care (01) ==
LOC: HO.LAB 13:56
PROVIDERS: PCP Internal Medicine; Visit Provider Internal Medicine
DX: M79.10 Myalgia, unspecified site (principal)
CPT/HCPCS: 36415; 80048; 82550; 85027; 85652; 86140; 86200

== ENCOUNTER 2024-04-01 10:28 | Outpatient (AMB) | payer OTHER, SELFPAY ==
--- NOTE | 2024-04-01 10:29 | MHC.PC.OV ---
Vital Signs 04/01/24 10:30 Height 5 ft 9 in Weight 320 lb BMI 47.3 BP 130/72 Blood Pressure Location Lt brachial Position Sitting Pulse 92 Pulse Source Pulse Oximeter Pulse Oximetry (%) 96 Oxygen Delivery Method Room Air Intake Visit Reasons: Per Dr Rajan Intake Note: Patient is here to follow up on [place] diseases and other health issue. Self Rising Flour Mixer Required: No Feed Weigher: Not Required per policy Accompanied by: Self / Same As Patient Allergies No Known Allergies [No Known Allergies*] Allergy (Verified 04/02/24 14:29) Medication List - Last Reconciled 04/02/24 by Go Rangel MD celecoxib 50 mg PO BID doxycycline hyclate 100 mg PO BID 21 days fenofibrate 160 mg PO DAILY furosemide 20 mg PO DAILY lisinopril 10 mg PO DAILY omeprazole 40 mg PO DAILY@629 walker As directed Tobacco use date assessed: 04/01/24 Dental Screening Dental Screen Date: 11/18/[address] Rajan HPI Details 59-year-old male presents to the office for a follow-up visit. Since his last office visit, patient's symptoms are getting progressively worse. He is having difficulty getting out of bed in the morning. The weakness in both his lower extremities are the worst in the morning. He is walking but very unsure of his gait. He has had no fall. He has been using the cane to ambulate. Since the last office visit, patient has completed the antibiotics with no significant improvement. He started physical therapy and is using bands to strengthen the lower extremity. Continues to abstain from alcohol and is also working only a few hours. Patient reports that his main symptoms are weakness in the thigh muscles. [facility] Medical History (Updated 03/31/24 @ 12:26 by Go Rangel MD) Myositis Morbid obesity with BMI of 40.0-44.9, adult Obstructive sleep apnea Thrombocytopenia Cirrhosis Closed rib fracture Acute alcoholic liver disease Gallstones Diarrhea Cholelithiasis Fatty liver Lyme disease GERD (gastroesophageal reflux disease) Vitamin D deficiency Impaired glucose tolerance Hypertriglyceridemia Hypertension Surgical History History of endoscopy No pertinent past surgical history Social History Household Members: Family Housing: House Do you presently have visiting nurse or other home services: No Alcohol intake: current Alcohol intake frequency: does not drink Alcohol type: beer Patient Tobacco Use Status: Never used Tobacco e-Cigarette/Vaping Use: Never Used Second Hand Smoke Exposure: No Substance Use Type: Marijuana service: No Current occupational status: employed Current occupational exposures/hazards: No Cognitive needs: No Hearing needs: No Vision needs: Yes (Glasses) Questionnaire Thrive Questionnaire Date Thrive assessed: 10/18/23 SIM-7 AMB Questionnaire SIM-7 Date SIM - 7 assessed: 11/18/23 Source: Developed by Drs. Darien Kendrick, Magdalene Vargas, Reed Gee and colleagues, with an educational raisa from [employer]. Physical exam (Primary Care) Vital Signs: Last Vital Signs Pulse 92 04/01/24 10:30 BP 130/72 04/01/24 10:30 Pulse Ox 96 04/01/24 10:30 Oxygen Delivery Method Room Air 04/01/24 10:30 BMI result Body Mass Index 47.3 Tobacco/Smoking Status: Tobacco use Status Tobacco use date assessed 04/01/24 04/01/24 10:38 Patient Tobacco Use Status Never used Tobacco 04/01/24 10:38 e-Cigarette/Vaping Use Never Used 04/01/24 10:38 Thrive Assessment: Date of Thrive Assessment Date Thrive assessed 10/18/23 04/01/24 10:38 Neuro Other: Unable to get up from the chair without holding support. Gait: Patient stomps on his foot as he continues to walk. Reflexes: Exaggerated bilaterally on the knee and ankles. Assessment and Plan Assessment & Plan (1) Gait disorder: Code(s): R26.9 - Unspecified abnormalities of gait and mobility Plan: A neurology consult is being requested. (2) Myositis: Code(s): M60.9 - Myositis, unspecified Plan: CK continues to be elevated. An ESR is being requested. Patient could have polymyalgia or a cord compression. Will proceed further after the neurology appointment. Orders: Orders Liver Panel 04/01/24 M60.9 - Myositis, unspecified C Reactive Protein 04/01/24 M60.9 - Myositis, unspecified Syphilis Screen 04/01/24 M60.9 - Myositis, unspecified Erythrocyte Sedimentation Rate 04/01/24 M60.9 - Myositis, unspecified Referrals Neurology Referral R26.9 - Unspecified abnormalities of gait and mobility Coding Level of Care Code Est Pt Level 4 (47307) Complex EM visit Add On G2211 Diagnoses Gait disorder R26.9 Myositis M60.9
[2024-04-01 10:30] VITALS: BP 130/72; PULSE 92; O2SAT 96; BMI 47.3
== END 2024-04-01 12:53 | disposition home or self-care (01) ==
PROVIDERS: PCP Internal Medicine; Visit Provider Internal Medicine
DX: R26.9 Unspecified abnormalities of gait and mobility (principal); M60.9 Myositis, unspecified
CPT/HCPCS: 99214

== ENCOUNTER 2024-04-02 14:22 | Outpatient (AMB) | payer OTHER, SELFPAY ==
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
[2024-04-02 14:30] VITALS: BP 130/70; PULSE 68; RESP 16; O2SAT 98; BMI 47.3
== END 2024-04-02 15:35 | disposition home or self-care (01) ==
PROVIDERS: PCP Internal Medicine; Visit Provider Psychiatry & Neurology Neurology
DX: R27.0 Ataxia, unspecified (principal); M54.2 Cervicalgia
CPT/HCPCS: 99204

== ENCOUNTER → 2024-04-02 14:22 | Outpatient (BNVA) | payer OTHER, SELFPAY | PROVIDERS: PCP Internal Medicine; Visit Provider Psychiatry & Neurology Neurology ==

== ENCOUNTER 2024-04-08 08:03 | Outpatient (REF) | payer SELFPAY ==
--- NOTE | ~2024-04-08 | MR_ITS ---
MRI OF THE BRAIN WITHOUT IV CONTRAST MRI OF THE CERVICAL SPINE WITHOUT IV CONTRAST INDICATION: Ataxia. Worsening gait. COMPARISON: Head and cervical spine CT October 17, 2023. TECHNIQUE: Multiplanar multisequence MR imaging of the brain and cervical spine obtained without IV contrast. FINDINGS: BRAIN MRI: There is no hydrocephalus, extra-axial surface collection, or herniation. Mild chronic microangiopathy. There is intrinsic T1 shortening within the globus pallidus and cerebral peduncles bilaterally compatible with manganese deposition in the setting of the patient's known history of chronic liver disease. Small focus of encephalomalacia and gliosis within the anterior left temporal pole. The major flow voids at the skull base are preserved. There is no acute infarct on diffusion-weighted imaging. There is no intracranial hemorrhage on the gradient recalled echo acquisition. The midline structures are normal. The cerebellar tonsils are normally positioned. The cerebellum and brainstem are normal. The craniocervical junction is normal. Osseous marrow signal intensity is homogenous. The visualized soft tissues are unremarkable. Moderate polypoid mucosal thickening within the right maxillary sinus. CERVICAL SPINE MRI: Very limited motion degraded MRI of the cervical spine. There is no bone marrow edema. There are no acute fractures. The vertebral body heights are maintained. The disc volumes are preserved. Cervical arterial flow voids are maintained. There are no significant extraspinal soft tissue findings. Nondiagnostic assessment for signal changes within the cervical spinal cord secondary to motion artifact. C2-C3: Posterior disc contour is normal. There is no central canal stenosis and there is no foraminal stenosis. C3-C4: Posterior disc contour is normal. There is no central canal stenosis and there is no foraminal stenosis. C4-C5: Uncovertebral joint spurring and facet arthropathy result in moderate left-sided foraminal stenosis. There is no central canal and there is no right foraminal stenosis. C5-C6: Uncovertebral joint spurring and facet arthropathy result in moderate to severe bilateral foraminal stenosis. No central canal stenosis. C6-C7: Posterior disc contour is normal. There is no central canal stenosis and there is no foraminal stenosis. C7-T1: Posterior disc contour is normal. There is no central canal stenosis and there is no foraminal stenosis. MR/MR cervical spine wo con IMPRESSION: * No acute intracranial findings. There is mild chronic microangiopathy. There is intrinsic T1 shortening within the globus pallidus and cerebral peduncles bilaterally compatible with manganese deposition in the setting of the patient's known history of chronic liver disease. Small focus of encephalomalacia and gliosis within the anterior left temporal pole. * Very limited and motion degraded MRI of the cervical spine with nondiagnostic assessment for signal changes within the cervical spinal cord due to motion artifact. There is multilevel cervical spondylosis with spondylitic changes resulting in moderate left C4-C5 and moderate to severe bilateral C5-C6 foraminal stenosis. No severe central canal stenosis within the cervical spine. Electronically signed by: Noman Caraballo MD 04/08/2024 10:03 AM EDT
== END 2024-04-08 08:04 | disposition home or self-care (01) ==
LOC: HO.MRI 08:03
PROVIDERS: PCP Internal Medicine; Visit Provider Psychiatry & Neurology Neurology
DX: R27.0 Ataxia, unspecified (principal); M54.2 Cervicalgia
CPT/HCPCS: 70551; 72141

== ENCOUNTER 2024-04-08 09:36 | Outpatient (AMB) | payer OTHER, SELFPAY ==
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
[2024-04-08 09:50] VITALS: BP 119/63; PULSE 90; BMI 47.3
== END 2024-04-08 10:58 | disposition home or self-care (01) ==
PROVIDERS: PCP Internal Medicine; Visit Provider Internal Medicine Gastroenterology
DX: K74.60 Unspecified cirrhosis of liver (principal); E66.01 Morbid (severe) obesity due to excess calories
CPT/HCPCS: 99214

== ENCOUNTER 2024-04-16 14:59 | Outpatient (REF) | payer OTHER, SELFPAY ==
--- NOTE | ~2024-04-16 | MR_ITS ---
EXAMINATION: MR LUMBAR SPINE WITHOUT CONTRAST CLINICAL INFORMATION: Back pain. Right leg pain. COMPARISON: None. TECHNIQUE: Multiplanar, multisequence imaging was obtained. FINDINGS: VERTEBRAL BODIES AND PARASPINAL STRUCTURES: There is edema in the right lateral inferior endplate of L4 and in the right L4-L5 pedicles and posterior elements, presumably reactive from severity of degenerative joint disease. Additional reactive marrow edema is visible in the left L5 pedicle and left L5-S1 articular processes from facet degeneration. There are no compression fractures or significant subluxations. The remainder of the marrow signal is within normal limits. The paraspinal soft tissues appear normal. There are mild degenerative changes of the sacroiliac joints. Epidural lipomatosis evident, more so on the lower lumbosacral canal with varying degrees of thecal sac distortion. CONUS MEDULLARIS AND CAUDA EQUINE: The distal cord, conus tip, and cauda equina nerve roots are normal. SPINAL LEVELS: L1-L2: Anterior endplate ossific spurring. No focal disc protrusion, central canal stenosis, or foraminal narrowing. L2-L3: Very mild disc bulge and mild facet arthropathy without central canal stenosis or foraminal narrowing. L3-L4: Generalized disc bulge and mild facet arthrosis with mild epidural fat prominence. No central canal stenosis. Facet spurring and bulging disc with mild foraminal encroachment. L4-L5: Broad-based disc bulge and severe facet arthropathy with epidural lipomatosis resulting in moderate to severe thecal sac distortion. Moderate central canal stenosis and severe bilateral foraminal narrowing with bulging disc and facet spurring impressing upon the exiting L4 nerve roots. Edema in the pedicles and posterior elements, worse on the right side. L5-S1: No significant disc pathology. Moderate to severe facet arthrosis. No central canal stenosis. Mild left foraminal narrowing. Milder marrow edema in the pedicles and posterior elements related to facet disease. MR/MR lumbar spine wo con IMPRESSION: Moderate central canal stenosis at the L4-L5 level with significant facet arthropathy, mild disc bulge, and epidural fat prominence contributing to moderate to severe thecal sac distortion. Reactive edema in the posterior elements and pedicles, worse on the right side. Severe bilateral foraminal narrowing and mild distortion of the exiting L4 nerve roots. Electronically signed by: Nikolai Patino MD 04/16/2024 04:25 PM EDT RP
== END 2024-04-16 15:00 | disposition home or self-care (01) ==
LOC: HO.MRI 14:59
PROVIDERS: PCP Internal Medicine; Visit Provider Psychiatry & Neurology Neurology
DX: M54.9 Dorsalgia, unspecified (principal); R27.0 Ataxia, unspecified
CPT/HCPCS: 72148

== ENCOUNTER 2024-04-22 09:01 | Outpatient (REF) | payer OTHER, SELFPAY ==
--- NOTE | ~2024-04-22 | US_ITS ---
EXAMINATION: US ABDOMEN LIMITED CLINICAL INFORMATION: Unspecified cirrhosis of liver. Screen for HCC. COMPARISON: CT abdomen and pelvis 10/17/2023. Ultrasound abdomen complete with elastography 10/16/2020. Ultrasound abdomen complete 08/26/2012. TECHNIQUE: Real-time imaging of the right upper quadrant abdominal viscera. FINDINGS: PANCREAS: The visualized portions of the pancreas are unremarkable but most of the gland is obscured by bowel gas. LIVER: The liver is enlarged at greater than 22 cm in length with a lobulated contour and increased echogenicity. No focal hepatic lesion. There is no intrahepatic biliary duct dilatation seen. GALLBLADDER: The gallbladder was contracted without evidence of stones, sludge, polyps, wall thickening or pericholecystic fluid. COMMON BILE DUCT: Normal in caliber measuring 0.4 cm in diameter. RIGHT KIDNEY: Normal. No hydronephrosis. No renal calculi or focal parenchymal lesions. The kidney measures 11.7 cm in maximum dimension. FREE FLUID: None. US/US abdomen limited IMPRESSION: Enlarged lobulated echogenic liver consistent with cirrhosis. No focal mass is seen. Electronically signed by: Aric Bowman MD 04/30/2024 12:45 AM EDT
== END 2024-04-22 09:02 | disposition home or self-care (01) ==
LOC: HO.US 09:01
PROVIDERS: PCP Internal Medicine; Visit Provider Internal Medicine Gastroenterology
DX: K74.60 Unspecified cirrhosis of liver (principal)
CPT/HCPCS: 76705

== ENCOUNTER 2024-04-26 09:56 | Outpatient (REF) | payer OTHER, SELFPAY ==
--- NOTE | ~2024-04-26 | XR_ITS ---
EXAMINATION: XR LUMBOSACRAL SPINE CLINICAL INFORMATION: M48.061 - Spinal stenosis, lumbar region without neurogenic claudication COMPARISON: No prior. Correlation made with MR lumbar 04/16/2024. TECHNIQUE: 4 views of the lumbar spine, inclusive of flexion and extension views, were obtained. FINDINGS: Study somewhat limited due to patient habitus. There is normal bone mineralization. There is no fracture, traumatic subluxation, or suspicious focal bone lesion. Normal lordosis. There is a minimal levoconvex scoliosis centered at L5. There is a trace 2 mm degenerative anterolisthesis of L4 on L5. There is no additional subluxation. There is no developing or worsening subluxation on flexion or extension views. Mild to moderate disc degeneration noted throughout the lumbar spine. Facets demonstrate mild sclerosis and degeneration predominantly L4-5, lesser at L5-S1. Soft tissues demonstrate no discrete abnormalities. XR/XR lumbar spine 4V min IMPRESSION: 1. No acute findings lumbar spine. 2. [id number] degenerative spondylosis, most significant at L4-5. 3. No evidence of instability on flexion-extension views. Electronically signed by: Mynor Heck MD 07/04/2024 02:00 PM [facility]
== END 2024-04-26 09:57 | disposition home or self-care (01) ==
LOC: HO.HOSX 09:56
PROVIDERS: PCP Internal Medicine; Visit Provider Physician Assistant
DX: M48.061 Spinal stenosis, lumbar region without neurogenic claudication (principal)
CPT/HCPCS: 72110

== ENCOUNTER 2024-04-26 09:56 | Outpatient (AMB) | payer OTHER, SELFPAY ==
--- NOTE | 2024-04-26 10:20 | HO.SPINEOV ---
Intake Visit Reasons: LBP/having trouble walking Intake Note: Mr. Allred is here today c/o low back pain making it difficult to walk. Physician Coder Required: No Allergies No Known Allergies [No Known Allergies*] Allergy (Verified 04/08/24 09:47) Assessment & Plan Assessment & Plan (1) Spinal stenosis at L4-L5 level: Code(s): M48.061 - Spinal stenosis, lumbar region without neurogenic claudication Category: Medical Plan Dear Dr Richmond, Thank you for referring Mr Allred to our office today. He is a 59-year-old gentleman history of alcoholic liver disease, cirrhosis, who about a month ago or so develop Lyme disease and had a number of symptoms including low back pain and right lower extremity pain which would radiate down the top of his foot. His leg felt weak at the time, but no tingling or numbness. He feels as though the weakness may be improving in his foot. He still continues to nguyen with the pain though. He underwent doxycycline treatment and has been on steroids recently. The steroids have helped a lot but he suspects when he goes off them that he will have the symptoms back. He underwent a lumbar MRI showing moderate stenosis at L4-5 and came in today for an evaluation. He currently has urinary urgency and frequency. No incontinence. No saddle changes. To this point he has had no dedicated conservative treatment because he has been in too much pain really to participate. PMH: Alcoholic liver disease, cirrhosis, morbid obesity, ataxia, myositis, sleep apnea, thrombocytopenia, H pylori infection, hypertriglyceridemia. Social hx: He does not smoke, he quit drinking in September when he found out that his liver enzymes were up, does not use any recreational drugs Medications: Celebrex, fenofibrate, Lasix, lisinopril, Ativan, omeprazole, Ozempic, prednisone Allergies: None Physical exam: he is awake alert oriented no acute distress but he is having a hard time standing on his own, he did need some assistance to get up on the examining table. He has no weakness in the lower extremities, slightly brisk reflexes in the patella, no clonus in the ankles. Imaging review: There is a lumbar MRI done here at [place] showing mild degenerative disc disease, the report suggests moderate stenosis but I do not see any actual compression of the nerves, there is also suggestion that there is compression in the L4 foramen but again, I can see on the sagittal imaging that there was no obvious compression of the nerve as it exits the spine. He had a cervical MRI done as well, this does not show any evidence of spinal cord compression. Impression: 59-year-old gentleman history of alcoholic liver disease, cirrhosis, thrombocytopenia presents with low back pain and right leg pain in the setting of recent diagnosis of Lyme disease. He completed his course of doxycycline. He has been on prednisone which seems to be helping. I reviewed his lumbar MRI, I do not see any overt compression of the nerves and there was not enough central canal stenosis to justify surgery. I think what we are dealing with here is some kind of inflammation of the nerve related to the Lyme disease and it should run its course over time. Maybe he would benefit from something like Lyrica or gabapentin. I do not think he needs back surgery. I will get standing flexion-extension x-rays just as a precaution rule out occult instability however. If there is something concerning I will contact the patient. Thank you for allowing us to care for your patient. The total time spent with this visit with this patient was 45 minutes reviewing history, physical exam, lumbar and cervical imaging review, and implementation of treatment plan or further diagnostic testing Alex Serrano MD,PhD [facility] Orders: Orders XR lumbar spine 4V min Today M48.061 - Spinal stenosis, lumbar region without neurogenic claudication Coding Level of Care Code New Pt Level 4 (62087) Diagnoses Spinal stenosis at L4-L5 level M48.061
== END 2024-04-26 11:32 | disposition home or self-care (01) ==
PROVIDERS: PCP Internal Medicine; Referring Provider Psychiatry & Neurology Neurology; Visit Provider Physician Assistant
DX: M48.061 Spinal stenosis, lumbar region without neurogenic claudication (principal)
CPT/HCPCS: 99204

== ENCOUNTER → 2024-04-26 11:25 | Outpatient (BNV) | payer OTHER, SELFPAY | PROVIDERS: PCP Internal Medicine; Visit Provider Radiology Diagnostic Radiology | DX: M48.061 Spinal stenosis, lumbar region without neurogenic claudication (principal); M51.36 Other intervertebral disc degeneration, lumbar region | CPT/HCPCS: 72110 ==

== ENCOUNTER 2024-04-26 11:47 | Outpatient (AMB) | payer OTHER, SELFPAY ==
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
[2024-04-26 13:07] VITALS: BP 132/74; PULSE 84; RESP 16; O2SAT 96; BMI 41.1
== END 2024-04-26 13:48 | disposition home or self-care (01) ==
PROVIDERS: PCP Internal Medicine; Visit Provider Student in an Organized Health Care Education/Training Program
DX: R29.898 Other symptoms and signs involving the musculoskeletal system (principal)
CPT/HCPCS: 99204

== ENCOUNTER 2024-04-26 13:53 | Outpatient (REF) | payer OTHER, SELFPAY ==
[2024-04-26 15:15] LABS: Basophils Absolute Auto 0.1 X10*3/uL (0.0-0.2); Basophils Percent Auto 0.7 % (0-2); Eosinophils Absolute Auto 0.2 X10*3/uL (0.0-0.4); Eosinophils Percent Auto 2.2 % (0-4); Hematocrit 41.5 % (42.0-52.0); Hemoglobin 13.9 g/dl (14.0-18.0); Imm Gran Abs Auto 0.02 X10*3/uL (0.00-0.03); Imm Gran Pct Auto 0.3 % (0.0-0.4); Lymphocytes Percent Auto 43.7 % (20-40); MANUAL DIFF FLAG SCAN; Mean Corpuscular HGB Conc 33.5 g/dl (31.0-36.0); Mean Corpuscular Hemoglobin 30.7 pg (27.0-33.0); Mean Corpuscular Volume 91.6 fL (80.0-98.0); Mean Platelet Volume 12.4 fL (9.4-12.4); Monocytes Absolute Auto 0.4 X10*3/uL (0.1-1.2); Monocytes Percent Auto 5.7 % (2-11); Neutrophils Absolute Auto 3.2 x10*3/uL (2.0-8.3); Neutrophils Percent Auto 47.4 % (45-73); PLT CLUMP 1; Red Blood Count 4.53 X10*6/uL (4.60-5.80); Red Cell Distribution Width 14.4 % (11.0-16.0); SCAN SMEAR FLAG 1
[2024-04-26 15:27] LABS: Alanine Aminotransferase 39 U/L (0-40); Albumin Level 4.1 g/dL (3.5-5.0); Alkaline Phosphatase 82 U/L (39-117); Anion Gap 15 (12-20); Aspartate Amino Transferase 33 U/L (5-37); Bilirubin Direct 0.7 mg/dL (0.0-0.5); Bilirubin Total 1.5 mg/dL (0.0-1.0); Blood Urea Nitrogen 19 mg/dL (9-16); C Reactive Protein < 0.10 mg/dL (< or = 0.50); Carbon Dioxide 25 mmol/L (22-29); Chloride 107 mmol/L (96-108); Estimated Glomerular Filt Rate > 60; Gamma Glutamyl Transpeptidase 62 U/L (11-51); Glucose Random 89 mg/dL (60-115); Lactate Dehydrogenase 179 U/L (118-273); Potassium 3.7 mmol/L (3.3-5.1); Rheumatoid Factor < 13.0 IU/mL (<15.0); Sodium 143 mmol/L (135-145); Total Protein 7.3 g/dL (6.5-8.0)
[2024-04-26 15:40] LABS: Platelet Count 101 X10*3/uL (160-400); White Blood Count 6.8 X10*3/uL (4.8-10.8)
[2024-04-26 15:41] LABS: SLIDE REVIEW VERIFIED
[2024-04-26 15:50] LABS: Appearance Urine Clear; Color Urine Dark Yellow; Glucose Urine UA Negative (Negative); Leukocyte Esterase Urine Negative (Negative); Nitrite Urine Negative (Negative); PH 5.5 (5.0-9.0); Specific Gravity - Urine 1.025 (1.005-1.025); Urine Blood Negative (Negative); Urine Ketones Negative (Negative); Urine Protein Negative (Neg-Trace)
[2024-04-26 15:54] LABS: Bacteria Urine None Seen (None Seen); Hyaline Casts Urine 0-2 /LPF (0-2); RBC Urine 0-2 /HPF (0-2); Squamous Epithelial Cell Urine 0-2 /HPF (0-2); WBC Urine 0-5 /HPF (0-5)
[2024-04-26 15:57] LABS: Erythrocyte Sedimentation Rate 10 MM/HR (0-15)
[2024-04-26 16:08] LABS: Creatinine Urine 164.14 mg/dL; Protein/Creatinine Ratio, Ur 0.05 (<0.2); Total Protein Urine Random 8 mg/dL (<12)
[2024-04-27 08:46] LABS: HBS Num1 0.45 mIU/mL (0-7.99); HBc Num1 0.13 S/CO (0.00-0.79); HBsAGNum1 0.43 S/CO (0.00-0.99); Hepatitis A Antibody IgM 0.16 Index (0-0.79); Hepatitis B Core Antibody Nonreactive (Nonreactive); Hepatitis B Surface Antigen Negative (Negative); ~Hepatitis A Antibody IgM Nonreactive (Nonreactive); ~Hepatitis B Surface Antibody NONREACTIVE (Nonreactive); ~Hepatitis C Antibody Nonreactive (Nonreactive)
[2024-04-27 08:53] LABS: Syphilis Screen Nonreactive (Nonreactive)
[2024-04-27 15:38] LABS: Complement C3 117 mg/dL (82-185)
[2024-04-27 20:14] LABS: Anti DNA DS Antibody <1 IU/mL; Antibody to SS-A Antigen <1.0 NEG AI (<1.0 NEG); Antibody to SS-B Antigen <1.0 NEG AI (<1.0 NEG); SM/Ribonucleoprotein Ab <1.0 NEG AI (<1.0 NEG); Smith Protein <1.0 NEG AI (<1.0 NEG)
[2024-04-28 12:28] LABS: Anti Nuclear Antibody Screen NEGATIVE (NEGATIVE); Prot Elec - Albumin 3.9 g/dL (3.8-4.8); Prot Elec - Alpha1 0.3 g/dL (0.2-0.3); Prot Elec - Alpha2 0.8 g/dL (0.5-0.9); Prot Elec - Beta 1 0.5 g/dL (0.4-0.6); Prot Elec - Beta 2 0.4 g/dL (0.2-0.5); Prot Elec - Total Protein 6.9 g/dL (6.1-8.1)
[2024-04-28 21:58] LABS: IgA 383 mg/dL (47-310); IgG 1063 mg/dL (600-1640); IgM 133 mg/dL (50-300)
[2024-04-29 04:08] LABS: TS Negative Control Passed; TS Panel A 0; TS Panel B 0; TS Positive Control Passed; TSpotTB Negative (Negative)
[2024-04-29 16:08] LABS: Aldolase 6.5 U/L (<=8.1)
[2024-05-06 19:03] LABS: Cytosolic 5'nuc 1A Ab IgG 21 Units; Ej Ab <11 SI (<11); HMGCR Ab IgG <2 CU (<20); Jo-1 Ab <11 SI (<11); MDA5 Ab <11 SI (<11); Mi-2 alpha Ab <11 SI (<11); Mi-2 beta Ab <11 SI (<11); NXP-2 (MJ) Ab <11 SI (<11); Oj Ab <11 SI (<11); Pl-12 Ab <11 SI (<11); Pl-7 Ab <11 SI (<11); SRP Ab <11 SI (<11); TIF1 gamma Ab <11 SI (<11)
== END 2024-04-26 13:54 | disposition home or self-care (01) ==
LOC: HO.LAB 13:53
PROVIDERS: PCP Internal Medicine; Visit Provider Student in an Organized Health Care Education/Training Program
DX: M32.9 Systemic lupus erythematosus, unspecified (principal); Z11.59 Encounter for screening for other viral diseases; Z11.7 Encounter for testing for latent tuberculosis infection
CPT/HCPCS: 36415; 80053; 81001; 82085; 82248; 82550; 82570; 82784; 82977; 83516; 83520; 83615; 84156; 84165; 84182; 85025; 85652; 86038; 86140; 86160; 86225; 86235; 86334; 86431; 86481; 86704; 86706; 86709; 86780; 86803; 87340

== ENCOUNTER 2024-04-28 14:00 | Outpatient (RCR) | payer SELFPAY ==
--- NOTE | 2024-04-01 12:39 | MHC.PT.EP ---
[facility] [place] Office [place] Office [place] Office [address] Ashlee Haskins [address] [phone] F: [phone] F: [phone] F: [phone] F: [phone] Physical Therapy Plan of Care Date of Evaluation: 03/31/24 Date of Surgery: Diagnosis: LEFT leg pain (MD Dx) neurological presentation, proximal weakness, unsteady gait (PT Dx) (RS) Assessment: Patient is a pleasant 59 y.o. male who is referred to PT by Dr. Go Rangel MD, with Dx of LEFT leg pain. The etiology of his symptoms is unclear. I have concerns with assessment findings with potential neurological presentation involving proximal weakness, clonus and hypereflexiva DTRs, and unsteady gait. I sent message to provider regarding aforementioned findings, MD responded that his office will see patient for FUP AMINAH. Patient impairments include pain, proximal LE and UE weakness, unsteady gait. Patient current functional limitations are Patient will benefit from skilled PT to address aforementioned impairments and functional limitations to meet established goals. Frequency and Duration: The patient will be seen 1-2x/week for 4 weeks Short Term Goals: 2 weeks Patient demonstrates consistency and independence with HEP to self manage symptoms. Patient is able to perform bed mobility (sit to supine and supine to sit) with good body mechanics independently. 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 [ End ] Treatment Plan: Modalities to reduce pain, spasms and effusion. Manual therapy to restore motion and function. Therapeutic exercise to improve strength and flexibility. Neuromuscular re-education for posture and balance. Therapeutic activities to return to functional activities of daily living. Electronically signed by: Kallie Veliz, PT, DPT Please sign and return to therapist. Thank you for your referral.
--- NOTE | 2024-06-18 10:02 | MHC.PT.DC ---
[facility] [place] [facility] [place] [facility] [place] Office [address] Ashlee Haskins [address] [phone] F: [phone] F: [phone] F: [phone] F: [phone] Physical Therapy Discharge Report Diagnosis: LEFT leg pain (MD Dx) neurological presentation, proximal weakness, unsteady gait (PT Dx) (RS) Date of Surgery: Date of Evaluation: 03/31/24 Date of Discharge: 06/18/24 Treatments to Date: 5 Cancellations to Date: 4 No Shows to Date: 0 Discharge Status: Recommend MD Follow-up Discharge Summary: Antonio was seeing multiple specialists for his condition. He was showing slow mild progress of sxs related to mobility but still presenting with LBP and R LE pain and weakness that was being addressed in PT with exercises, incorporating balance and gait with definite need of US support for walker or parallel bars. He had a fall at home and was hospitalized sometime after his last PT session 04/28/24. I was made aware of his hospitalization and STR was recommended due to continued difficulty with mobility. Multiple tests and specialists were still working to confirm a diagnosis, questionable PMR or myositis or complications due to Lyme's Disease. He is discharged from outpatient PT due to change in status, will need a new referral to resume PT. Electronically signed by: Kallie Veliz, PT, DPT Please sign and return to therapist. Thank you for your referral.
== END 2024-06-18 10:03 | disposition home or self-care (01) ==
LOC: HO.PT 14:00
PROVIDERS: PCP Internal Medicine; Visit Provider Internal Medicine
DX: M79.605 Pain in left leg (principal)
CPT/HCPCS: 97110; 97112; 97116; 97161; 97530

== ENCOUNTER 2024-04-29 09:22 | Outpatient (AMB) | payer OTHER, SELFPAY ==
--- NOTE | 2024-04-29 09:40 | MHC.PC.OV ---
Vital Signs 04/29/24 09:41 Height 5 ft 9 in Weight 308 lb 6 oz BMI 45.5 BP 130/80 Blood Pressure Location Lt brachial Position Sitting Pulse 65 Pulse Source Pulse Oximeter Pulse Oximetry (%) 97 Oxygen Delivery Method Room Air Intake Visit Reasons: Per Dr Rajan Intake Note: Patient is here to follow up on Weakness in both legs. Foam Cutting Supervisor Required: No Client Account Specialist: Not Required per policy Accompanied by: Self / Same As Patient Allergies No Known Allergies [No Known Allergies*] Allergy (Verified 04/29/24 09:41) Tobacco use date assessed: 04/29/24 Dental Screening Dental Screen Date: 11/18/[address] Rajan HPI Details 59-year-old male presents to the office for a follow-up visit. Since last office visit patient has seen a neurologist, combat systems engineer and a spine surgeon. MRIs done at the neurologist office showed degenerative joint disease in the spine with spinal stenosis. Patient was then seen by a spine surgeon and is condition can not be surgically corrected. The MRI of the neck and brain has to be repeated due to technical issues. Patient was later seen by a combat systems engineer. The CPK is declining. Patient is using a walker to ambulate because of weakness in his legs. They are slowly improving and he is getting his strength back in the legs. However he is still very unsteady and is afraid of falling. Continues to be abstinent from alcohol. Patient reports increased frequency of urination. He gets up at least 4-5 times at night to urinate. FOR[facility]LY [facility], LAT[facility] Medical History Spinal stenosis at L4-L5 level Back pain Cervicalgia Ataxia Myositis Morbid obesity with BMI of 40.0-44.9, adult Obstructive sleep apnea Thrombocytopenia Cirrhosis Closed rib fracture Acute alcoholic liver disease Gallstones Diarrhea Cholelithiasis Fatty liver Lyme disease GERD (gastroesophageal reflux disease) Vitamin D deficiency Impaired glucose tolerance Hypertriglyceridemia Hypertension Surgical History History of endoscopy No pertinent past surgical history Social History Household Members: Family Housing: House Do you presently have visiting nurse or other home services: No Alcohol intake: current Alcohol intake frequency: does not drink Alcohol type: beer Patient Tobacco Use Status: Never used Tobacco e-Cigarette/Vaping Use: Never Used Second Hand Smoke Exposure: No Substance Use Type: Marijuana service: No Current occupational status: employed Current occupational exposures/hazards: No Cognitive needs: No Hearing needs: No Vision needs: Yes (Glasses) Questionnaire Thrive Questionnaire Date Thrive assessed: 10/18/23 Are you currently unemployed and looking for a job?: No SIM-7 AMB Questionnaire SIM-7 Date SIM - 7 assessed: 11/18/23 Source: Developed by Drs. Darien Kendrick, Magdalene Vargas, Reed Gee and colleagues, with an educational raisa from [employer]. Fall Risk Assessment Fall Risk Assessment Fall risk assessment: 2 + Falls in past year Physical exam (Primary Care) Vital Signs: Last Vital Signs Pulse 65 04/29/24 09:41 BP 130/80 04/29/24 09:41 Pulse Ox 97 04/29/24 09:41 Oxygen Delivery Method Room Air 04/29/24 09:41 BMI result Body Mass Index 45.5 Tobacco/Smoking Status: Tobacco use Status Tobacco use date assessed 04/29/24 04/29/24 09:47 Patient Tobacco Use Status Never used Tobacco 04/29/24 09:47 e-Cigarette/Vaping Use Never Used 04/29/24 09:47 Thrive Assessment: Date of Thrive Assessment Date Thrive assessed 10/18/23 04/29/24 09:47 Const General: cooperative and healthy appearing Nutritional Appearance: well nourished Orientation/consciousness: patient oriented x3 Limitations: no limitations HENMT Head: Yes normal to inspection Eyes General: appearance normal, both eyes and all related structures Neck Neck: Yes normal visual inspection Chest Chest palpation & inspection: normal palpation of entire chest wall Resp Effort & Inspection: normal respiratory effort Neuro General: patient oriented x3 Office Procedures Flu Questionnaire Does the patient have a severe egg allergy?: No Does the patient have severe life threatening allergies?: No Does the patient have a fever or illness today?: No Has the patient ever had Guillain-[place] Syndrome?: No Has the patient ever had any past reaction to a flu shot?: No Immunizations Fluarix Triv [id number] (PF) 45 mcg (15 mcg x 3)/0.5 mL IM syringe Performing Provider: Go Rangel MD [facility] Administered by: Monica Smith LPN on 04/29/24 10:04 Dose Route Admin Location Dispensed Lot Number Expiration Date ND Milk Handler 0.5 mL IM Left Deltoid 0.5 mL [id number] 01/24/25 34119-773-71 [employer] VIS Given Date VIS Provided VIS Publication Date 04/29/24 Single Vaccine 21 Eligibility Eligibility Date Funding Source Not [facility] Eligible 04/29/24 Private Coding Level of Care Code Est Pt Level 4 (83830) Complex EM visit Add On G2211 Diagnoses Bilateral leg weakness R29.898 Assessment & Plan Assessment & Plan (1) Bilateral leg weakness: Code(s): R29.898 - Other symptoms and signs involving the musculoskeletal system Category: Medical Plan: Most of his symptoms are related to degenerative joint disease. Continue physical therapy. Taper the prednisone. Furosemide was discontinued. Ozempic could not be started as patient insurance will not cover it. Orders: Orders Influenza [id number] Immunization Today Z23 - Encounter for immunization Medications: Discontinued furosemide Discontinued Reason: Doctor's Order 20 mg PO DAILY 90 tabs 1RF celecoxib Discontinued Reason: Doctor's Order 50 mg PO BID 60 caps 0RF semaglutide (Ozempic) Discontinued Reason: Insurance Denied 1 mg (0.75 mL) subcut QWEEK 3 mL 0RF
[2024-04-29 09:41] VITALS: BP 130/80; PULSE 65; O2SAT 97; BMI 45.5
== END 2024-04-29 10:39 | disposition home or self-care (01) ==
PROVIDERS: PCP Internal Medicine; Visit Provider Internal Medicine
DX: R29.898 Other symptoms and signs involving the musculoskeletal system (principal); Z23 Encounter for immunization

== ENCOUNTER → 2024-04-29 09:22 | Outpatient (BNVA) | payer OTHER, SELFPAY | PROVIDERS: PCP Internal Medicine; Visit Provider Internal Medicine | DX: R29.898 Other symptoms and signs involving the musculoskeletal system (principal); Z23 Encounter for immunization | CPT/HCPCS: 90471; 90656 ==

== ENCOUNTER → 2024-05-06 07:54 | Outpatient (BNV) | payer OTHER, SELFPAY | PROVIDERS: PCP Internal Medicine; Visit Provider Radiology Diagnostic Radiology | DX: R27.0 Ataxia, unspecified (principal) | CPT/HCPCS: 72141 ==

== ENCOUNTER 2024-05-06 07:59 | Outpatient (REF) | payer OTHER, SELFPAY ==
--- NOTE | ~2024-05-06 | MR_ITS ---
EXAMINATION: MR CERVICAL SPINE WITHOUT CONTRAST CLINICAL INFORMATION: Ataxia. Right upper extremity weakness. COMPARISON: None available. TECHNIQUE: MRI of the cervical spine was obtained using routine sequences without contrast. FINDINGS: Craniocervical junction is intact. No bone marrow STIR signal abnormality. The alignment is normal. The cervical spinal cord signal is normal. C2-3: No cord compression. No neuroforamina stenosis. Note disc herniation. C3-4: No cord compression. No neuroforamina stenosis. No disc herniation. C4-5: No disc herniation. No cord compression. No neuroforamina stenosis. C5-6: No disc herniation. No cord compression. Bilateral neuroforamina narrowing on a degenerative basis. C6-7: No disc herniation. No cord compression. No neuroforamina stenosis. No prevertebral compartment hematoma, mass or fluid collection. Flow-void signal within the mean vessels is normal. Called codominant vertebral arteries. MR/MR cervical spine wo con IMPRESSION: Cervical spondylosis C5-6 without cord compression, cord edema and or myelopathy. No acute fracture or listhesis. Electronically signed by: Williams Lemons MD 06/01/2024 03:26 PM [facility]
== END 2024-05-06 08:00 | disposition home or self-care (01) ==
LOC: HO.MRI 07:59
PROVIDERS: PCP Internal Medicine; Visit Provider Psychiatry & Neurology Neurology
DX: R27.0 Ataxia, unspecified (principal)
CPT/HCPCS: 72141

== ENCOUNTER 2024-05-09 11:15 | Emergency (ER) | payer OTHER, SELFPAY ==
--- NOTE | 2024-05-09 | ECG_ITS ---
Test Reason : WEAKNESS Blood Pressure : / mmHG Vent. Rate : 070 BPM Atrial Rate : 070 BPM P-R Int : 130 ms QRS Dur : 108 ms QT Int : 424 ms P-R-T Axes : 017 -14 012 degrees QTc Int : 457 ms Normal sinus rhythm Minimal voltage criteria for LVH, may be normal variant ( R in aVL ) Nonspecific ST abnormality cannot exclude preexcitation Abnormal ECG When compared with ECG of 17-OCT-2023 12:42, No significant change was found Referred By: Generic ED Physician Electronically Signed By:WILLOW ORNELAS
--- NOTE | ~2024-05-09 | CT_ITS ---
EXAMINATION: CT HEAD WITHOUT CONTRAST CT CERVICAL SPINE WITHOUT CONTRAST CLINICAL INFORMATION: Fall. Head injury. COMPARISON: October 17, 2023 and January 01, 2009. TECHNIQUE: CT of the head and cervical spine were performed without intravenous contrast. Multiplanar reformats were rendered and reviewed. This CT examination was performed using dose optimization techniques as appropriate, variously including the following: *Automated exposure control *Adjustment of mA and/or kV according to patient size (this includes techniques or standardized protocols for targeted exams where dose is matched to indication/reason for exam; i.e. extremities or head) *Use of iterative reconstruction technique DLP: 1746 mGy-cm. FINDINGS: CT head: No intracranial hemorrhage, large infarction, or mass lesion is seen. No extra-axial collection is appreciated. The ventricles are normal in size and configuration without evidence of hydrocephalus. The mastoid air cells are clear. Approximately 1 cm right sphenoid sinus retention cyst versus mucosal polyp. CT cervical spine: The vertebral body heights appear maintained. No cervical spine fracture is seen. The cervical alignment appears normal. The paraspinal soft tissues appear within normal limits. The partially imaged lung apices appear clear. CT/CT cervical spine wo IV con IMPRESSION: CT head: No acute intracranial finding. CT cervical spine: No cervical spine fracture or traumatic malalignment identified. Electronically signed by: Jason Dukes MD 05/09/2024 02:08 PM EDT
--- NOTE | ~2024-05-09 | CT_ITS ---
EXAMINATION: CT HEAD WITHOUT CONTRAST CT CERVICAL SPINE WITHOUT CONTRAST CLINICAL INFORMATION: Fall. Head injury. COMPARISON: October 17, 2023 and January 01, 2009. TECHNIQUE: CT of the head and cervical spine were performed without intravenous contrast. Multiplanar reformats were rendered and reviewed. This CT examination was performed using dose optimization techniques as appropriate, variously including the following: *Automated exposure control *Adjustment of mA and/or kV according to patient size (this includes techniques or standardized protocols for targeted exams where dose is matched to indication/reason for exam; i.e. extremities or head) *Use of iterative reconstruction technique DLP: 1746 mGy-cm. FINDINGS: CT head: No intracranial hemorrhage, large infarction, or mass lesion is seen. No extra-axial collection is appreciated. The ventricles are normal in size and configuration without evidence of hydrocephalus. The mastoid air cells are clear. Approximately 1 cm right sphenoid sinus retention cyst versus mucosal polyp. CT cervical spine: The vertebral body heights appear maintained. No cervical spine fracture is seen. The cervical alignment appears normal. The paraspinal soft tissues appear within normal limits. The partially imaged lung apices appear clear. CT/CT head/brain wo IV con IMPRESSION: CT head: No acute intracranial finding. CT cervical spine: No cervical spine fracture or traumatic malalignment identified. Electronically signed by: Jason Dukes MD 05/09/2024 02:08 PM EDT
[2024-05-09 11:18] VITALS: BP 147/85; PULSE 79; RESP 18; TEMP 36.7; O2SAT 97; BMI 44.3
--- NOTE | 2024-05-09 11:27 | ED_ITS ---
HPI - General Adult General Chief complaint: Fall Stated complaint: fall Time Seen by Provider: 05/09/24 11:28 Source: patient Mode of arrival: wheelchair Limitations: altered mental status History of Present Illness HPI narrative: Patient is a 59-year-old male who presents emergency department with and daughter for evaluation. Patient endorses having a mechanical trip and fall last night on a rug around approximately 22:30. He has been having ongoing issues with his mobility and a chronic neuropathy resulting in him often dragging his right lower leg. He believes he got ?tangled in the rug? last night resulting in his fall. He states that he landed onto his abdomen, not endorsing any abdominal pain nausea or vomiting. Fall was unwitnessed by family members, they do not believe there was any loss of consciousness. Typically with his falls he was able to get himself to a standing position with their assistance in the use of furniture. Last night he was unable to so they moved a mattress and he lied on the floor all night. Additional family members came today and were able to facilitate him getting into a vehicle to have evaluation in the emergency department. - Daughter states that last night he kept repeating himself, not answering questions appropriately. Last fall was a few weeks ago by family's report. Currently he does not endorse any pain and feels as though overall he is at his baseline, but does admit he is weaker than usual. Family states he is also having a hard time sleeping, he is notably lethargic during the day and appears very drowsy. - He admits to a history of alcohol use disorder, endorses cessation as of September of 2023. Reports approximately 1 month ago he was treated with a 21 day course of doxycycline for Lyme disease. - He is following with physical therapy outpatient, missed this past week due to the therapist being out. and daughter expressed concerns about him being able to safely return home due to the frequency of his falls and there inability to facilitate him getting up. reports that during the summer he was ambulating independently, able to swim without difficulty, but has had a sudden declined since then. - They report he has had multiple CT/MRI imaging this year for these issues. He is awaiting outpatient follow-up with Neurology/rheumatology for ?nerve studies? Related Data Home Medications ?Medication ?Instructions ?Recorded ?Confirmed acetaminophen 500 mg tablet 1,000 mg PO Q6H PRN Pain 05/09/24 05/09/24 omeprazole 40 mg capsule,delayed 40 mg PO DAILY@0630 PRN Acid Reflux 05/09/24 05/09/24 release Previous Rx's ?Medication ?Instructions ?Recorded walker #1 ea 10/21/23 lisinopril 10 mg tablet 10 mg PO DAILY #90 tabs 02/18/24 fenofibrate 160 mg tablet 160 mg PO DAILY #90 tabs 04/15/24 solifenacin 10 mg tablet (Vesicare) 10 mg PO DAILY 30 days #30 tabs 05/07/24 Allergies Allergy/AdvReac Type Severity Reaction Status Date / Time No Known Allergies Allergy Verified 05/09/24 11:22 [No Known Allergies*] Review of Systems 2 Review of Systems: Yes all other systems are reviewed and are negative [facility] Past Medical History Attestation statement: The following information was validated with the patient. Source: old records reviewed Medical History Spinal stenosis at L4-L5 level Back pain Cervicalgia Ataxia Myositis Morbid obesity with BMI of 40.0-44.9, adult Obstructive sleep apnea Thrombocytopenia Cirrhosis Closed rib fracture Acute alcoholic liver disease Gallstones Diarrhea Cholelithiasis Fatty liver Lyme disease GERD (gastroesophageal reflux disease) Vitamin D deficiency Impaired glucose tolerance Hypertriglyceridemia Hypertension Surgical History History of endoscopy No pertinent past surgical history Social History Social History Household Members: Family Housing: House Do you presently have visiting nurse or other home services: No Alcohol intake: former Patient Tobacco Use Status: Never used Tobacco Smoked in Last 30 Days: No e-Cigarette/Vaping Use: Never Used Second Hand Smoke Exposure: No Use of substances other than those prescribed or required for medical reasons: No Substance Use Type: Marijuana Advance Directives: No Advance Directives Information Provided: Yes service: No Current occupational status: employed Current occupational exposures/hazards: No Cognitive needs: No Hearing needs: No Vision needs: Yes (Glasses) Physical Exam ED Vital Signs: Vital Signs - 24 hr 05/10/24 14:26 05/10/24 18:16 05/11/24 00:00 Temperature 98.7 F 98.6 F Pulse Rate 78 75 Respiratory Rate 18 18 Blood Pressure 117/68 132/78 131/66 Pulse Oximetry 97 95 Oxygen Delivery Method Room Air Room Air 05/11/24 05:44 05/11/24 07:44 05/11/24 08:25 Temperature 98.1 F Pulse Rate 70 Respiratory Rate 17 20 Blood Pressure 146/80 H 146/80 H Pulse Oximetry 94 Oxygen Delivery Method Room Air BMI result Body Mass Index 44.3 Appearance: Alert.?Oriented to person, place and time. No acute distress.?Normal affect. Eyes: Pupils equal, round and reactive to light.? EOMI. No nystagmus. ENT: Pharynx normal.?? Neck: Normal inspection.? Neck supple.??No cervical adenopathy CVS: Heart sounds normal. Normal heart rate and rhythm.? Pulses normal.?? Respiratory: No respiratory distress.? Lung sounds clear to auscultation bilaterally?? Abdomen: Soft and non-tender. Normoactive bowel sounds. No pulsatile mass.?? Skin: Skin warm and dry.? Normal skin color.? Extremities: No lower extremity edema.? No calf ttp?full range of motion to bilateral hips knees and ankles. Neuro: Moves all extremities spontaneously. Sensation intact bilaterally. CN II- XII intact. No focal neuro deficits. Course Course Course Narrative: RME: done by Madhu De La Fuente. [age] year male presents to ED for fall last night. Presently has no complaints. Patient has history of multiple falls due to chronic nerve damage from spine down to lower extremities due to lumbar spine disc herniation and bulging. Patient has had issues with speech in the past. Patient has had multiple MRIs of the brain which were normal. Patient brought to the ED bed 13 immediately. Reevaluation(s) Reevaluation #1: Increased weakness decreased mobility from baseline, confusion from baseline concern for hepatic encephalopathy with ammonia 98, started on lactose. Reevaluation #2: I was asked to evaluate the patient by the hospitalist staff, Dr Bowles who had not yet admitting the patient as labs are pending. The lab was called and labs/chemistries were family results that did not show any significant acute abnormalities. I evaluated the patient he did answer questions appropriately to me, he states that he is willing to stay in the hospital. Dr. Oconnor went to evaluate the patient and felt the patient was answering questions appropriately and did not seem encephalopathic. He does not feel the patient requires admission at this time. The patient is not stable to be discharged home as he is not steady on his feet, we will keep the patient in the ER overnight for a case management admission. Time: 18:44 Additional Reevaluation(s): 05/10/24--2--physician observation continued. Vital signs stable. Labs reviewed. Med reconciliation completed. Pending PT/case management evaluation. Will continue to monitor for discharge needs 05/11/24 -- 721--physician observation continued. Patient seen by Physical therapy who is recommending short-term rehab at this time. Case management has been consulted. Pending placement. No evidence of alcohol withdrawal at this time, monitoring CIWA scores. Will continue to monitor. 05/11/24 -- 12:35--physician observation continued. Patient has been accepted to [facility] for acute rehab. At this time he does not require medical admission to the hospital. His vital signs remained stable. Physician observation discontinued at this time, he is stable for discharge to acute rehab for further management. Medications Administered Generic Name Dose Route Start Last Admin Trade Name Freq PRN Reason Stop Dose Admin Acetaminophen 975 mg 05/10/24 07:58 05/11/24 00:06 Acetaminophen 325 Mg Tablet PO 975 mg Q6H PRN Administration Pain, Moderate(Pain Scale 4-6) Fenofibrate 160 mg 05/10/24 09:00 05/11/24 08:25 Fenofibrate 160 Mg Tablet PO 160 mg DAILY SAMARA Administration Lisinopril 10 mg 05/10/24 09:00 05/11/24 08:25 Lisinopril 10 Mg Tablet PO 10 mg DAILY SAMARA Administration Protocol Tolterodine Tartrate 4 mg 05/10/24 09:00 05/11/24 08:25 Tolterodine Tartrate La 4 Mg Cap.Er.24h PO 4 mg DAILY SAMARA Administration Discontinued Medications Generic Name Dose Route Start Last Admin Trade Name Freq PRN Reason Stop Dose Admin Acetaminophen 975 mg 05/10/24 05:06 05/10/24 05:16 Acetaminophen 325 Mg Tablet PO 05/10/24 05:07 975 mg ONCE ONE Administration Lactulose 30 gm 05/09/24 14:44 05/09/24 15:28 Lactulose 20 Gm/30 Ml Solution PO 05/09/24 14:45 30 gm ONCE ONE Administration Medical Decision Making Medical Decision Making [facility] Narrative: Patient is a 59-year-old male with past medical history of cirrhosis due to prior EtOH usage, GERD, obesity, hypertension, hypertriglyceridemia, glucose intolerance, obesity presenting to emergency department for evaluation after a fall last night with increasing weakness from his baseline. He is undergoing outpatient workup due to multiple falls with concern for chronic nerve damage from his lumbar spine with disc herniation and bulging. Daughter expressed concern that after the fall last night he was repeating himself and not providing straight answers. He appears to be answering questions appropriately at this time. He denies any head strike or loss of consciousness with this fall. He endorses no pain to his lower extremities. Has full range of motion to the bilateral hips knees and ankles, no evidence of pelvic instability. His abdominal examination is benign. He has no focal neurological deficits. Family expressed concern for confusion, he is answering questions appropriately at the time of my evaluation and able to follow commands but does seem to lose his track of thought and is noted to be frequently repeating himself, given his underlying liver disease will also obtain ammonia level to exclude etiology for encephalopathy. On evaluation of his radiographic imaging, he had a cervical spine MRI obtained 3 days ago 05/06/2024 awaiting radiologist impression at this time. Had previous MRI of the brain, cervical spine and lumbar spine in March of 2024 -- there was no evidence of acute intracranial findings, mild chronic microangiopathy, multilevel cervical spondylosis with moderate to severe bilateral C5-C6 foraminal stenosis no severe central stenosis, moderate central stenosis at L4-L5 with significant facet arthropathy and mild disc bulge, epidural fat prominence contributing to moderate-severe thecal sac distortion with reactive edema, severe bilateral foraminal narrowing of the L4 nerve roots. 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 CBC is without leukocytosis, has a chronic normocytic anemia that does not meet transfusion criteria, chronic thrombocytopenia unchanged from baseline, likely due to his prior alcohol use disorder. No hyperglycemia. Alcohol level negative. Chemistries __, hyperammonemia; 98 will initiate lactulose 05/09/24 11:46 05/09/24 11:46 Labs: Lab Results 05/09/24 05/09/24 05/09/24 Range/Units 11:46 11:57 13:30 WBC 5.0 (4.8-10.8) X10*3/uL RBC 4.07 L (4.60-5.80) X10*6/uL Hgb 12.9 L (14.0-18.0) g/dl Hct 37.1 L (42.0-52.0) % MCV 91.2 (80.0-98.0) fL MCH 31.7 (27.0-33.0) pg MCHC 34.8 (31.0-36.0) g/dl RDW 13.9 (11.0-16.0) % Plt Count 94 L (160-400) X10*3/uL MPV 11.1 (9.4-12.4) fL Immature Gran % (Auto) 0.2 (0.0-0.4) % Neut % (Auto) 64.5 (45-73) % Lymph % (Auto) 26.7 (20-40) % Sully % (Auto) 6.0 (2-11) % Eos % (Auto) 2.0 (0-4) % Baso % (Auto) 0.6 (0-2) % Lymph # (Auto) 1.3 (1.2-4.9) X10*3/uL Sully # (Auto) 0.3 (0.1-1.2) X10*3/uL Eos # (Auto) 0.1 (0.0-0.4) X10*3/uL Baso # (Auto) 0.0 (0.0-0.2) X10*3/uL Abs Immat Gran (auto) 0.01 (0.00-0.03) X10*3/uL Absolute Neuts (auto) 3.2 (2.0-8.3) x10*3/uL Absolute Nucleated RBC 0.000 (0.0-0.012) X10*3/uL Nucleated RBC % (auto) 0.0 (0.0-0.2) /100WBC Hold Purple Top SEE NOTE Sodium 144 (135-145) mmol/L Potassium 3.7 (3.3-5.1) mmol/L Chloride 112 H (96-108) mmol/L Carbon Dioxide 23 (22-29) mmol/L Anion Gap TNP BUN 17 H (9-16) mg/dL Creatinine 0.65 (0.5-1.4) mg/dL Estim Creat Clear Calc 177.1 Estimated GFR > 60 POC Glucose 95 (60-115) mg/dL Random Glucose 96 (60-115) mg/dL Calcium 9.6 (8.4-10.2) mg/dL Total Bilirubin 1.3 H (0.0-1.0) mg/dL Direct Bilirubin 0.6 H (0.0-0.5) mg/dL AST 44 H (5-37) U/L ALT 42 H (0-40) U/L Alkaline Phosphatase 71 (39-117) U/L Ammonia 98 H (13-55) umol/L Total Creatine Kinase 354 H (38-174) U/L Troponin I High Sens 5.8 (<3.5-35.0) ng/L B-Natriuretic Peptide 19 (<100) pg/mL Total Protein 6.8 (6.5-8.0) g/dL Albumin 3.9 (3.5-5.0) g/dL Urine Color Yellow Urine Appearance Clear Urine pH 7.0 (5.0-9.0) Ur Specific [place] 1.025 (1.005-1.025) Urine Protein Negative (Neg-Trace) mg/dL Urine Glucose (UA) Negative (Negative) mg/dL Urine Ketones Negative (Negative) mg/dL Urine Blood Negative (Negative) Urine Nitrite Negative (Negative) Ur Leukocyte Esterase Negative (Negative) Urine RBC 0-2 (0-2) /HPF Urine WBC 0-5 (0-5) /HPF Ur Squamous Epith Cells 0-2 (0-2) /HPF Urine Bacteria None Seen (None Seen) Hyaline Casts 0-2 (0-2) /LPF Ethyl Alcohol < 10 mg/dL Independent Interpretation I performed an independent interpretation of an: EKG and CT Scan (No ICH or infarct) Interpretation: Rate: 70 Rhythm:? Normal sinus rhythm Normal P waves.? Normal [place]O.?? Normal QRS complex.?? ST T wave :??No ST elevation, no ST depression qTC: 457 prior studies:? September of 2023 The study has been interpreted contemporaneously by me. Radiology Impression Discussion of test interpretation with radiology: I have reviewed the radiologist's reading. Radiologist Impression: CT/CT head/brain wo IV con IMPRESSION: CT head: No acute intracranial finding. CT cervical spine: No cervical spine fracture or traumatic malalignment identified. Independent Historian Clinical information obtained from an independent historian. History obtained from or confirmed by: Spouse Patient's and daughter expressed concerns about his ability to return home safely due to his ongoing declining mobility issues. We had an at length discussion about his potential treatment options, will rule out acute pathology today, if patient is agreeable, we will discuss having physical therapy evaluation for possible placement to short-term/acute rehab. Patient is of sound mind alert and oriented x4 at this time, appears to have hesitation towards either, and I did make daughter and aware that he can not be forced to go he would need to be agreeable and they verbalized understanding of this. External Record Review External record reviewed: Outpatient record and Prior outpatient radiology (See narrative above) Discharge Plan Discharge Clinical Impression: Spinal stenosis at L4-L5 level Patient Disposition: Xfer Inpatient Rehab Fac Transfer Details: TO: [facility],[address] [place] [address], [phone] Instructions: Acute Low Back Pain (ED) Additional Instructions: You are being discharged to acute rehab. Continue to abstain from alcohol, chronic alcohol use can worsen neuropathy, mobility issues and put you at risk for increased falls. Follow-up with your doctor If you develop new or worsening symptoms call 911 or come back to the ER for further evaluation. Prescriptions: No Action fenofibrate 160 mg tablet 160 mg PO DAILY Qty: 90 1RF solifenacin [Vesicare] 10 mg tablet 10 mg PO DAILY 30 Days Qty: 30 1RF (DME) arielle Misc See Rx Instructions .Route Qty: 1 0RF Rx Instructions: As directed acetaminophen 500 mg Tablet 1,000 mg PO Q6H PRN (Reason: Pain) omeprazole 40 mg capsule,delayed release(DR/EC) 40 mg PO DAILY@0630 PRN (Reason: Acid Reflux) lisinopril 10 mg tablet 10 mg PO DAILY Qty: 90 1RF [facility]: [facility] [Outside] Edwin García MD [Physician] - Go Rangel MD [Primary Care Provider] - Print Language: Panamanian
[2024-05-09 11:38] VITALS: BMI 44.3
[2024-05-09 11:40] VITALS: BP 137/51; PULSE 77; RESP 16; O2SAT 95
[2024-05-09 11:50] LABS: MANUAL DIFF FLAG NO
[2024-05-09 11:53] LABS: Basophils Percent Auto 0.6 % (0-2); Eosinophils Absolute Auto 0.1 X10*3/uL (0.0-0.4); Hematocrit 37.1 % (42.0-52.0); Hemoglobin 12.9 g/dl (14.0-18.0); Imm Gran Abs Auto 0.01 X10*3/uL (0.00-0.03); Imm Gran Pct Auto 0.2 % (0.0-0.4); Lymphocytes Absolute Auto 1.3 X10*3/uL (1.2-4.9); Lymphocytes Percent Auto 26.7 % (20-40); Mean Corpuscular HGB Conc 34.8 g/dl (31.0-36.0); Mean Corpuscular Hemoglobin 31.7 pg (27.0-33.0); Mean Corpuscular Volume 91.2 fL (80.0-98.0); Mean Platelet Volume 11.1 fL (9.4-12.4); Monocytes Absolute Auto 0.3 X10*3/uL (0.1-1.2); Neutrophils Absolute Auto 3.2 x10*3/uL (2.0-8.3); Neutrophils Percent Auto 64.5 % (45-73); Red Blood Count 4.07 X10*6/uL (4.60-5.80); Red Cell Distribution Width 13.9 % (11.0-16.0)
[2024-05-09 11:54] LABS: Platelet Count 94 X10*3/uL (160-400)
[2024-05-09 12:01] LABS: Glucose, Whole Blood 95 mg/dL (60-115)
--- NOTE | 2024-05-09 12:02 | PC.NURSE ---
pt presents to the ED w/ increased AMS and increase in falls at home recently. upon ED arrival - pt mostly alert and oriented but seemingly confused at times. family reports repeating self more frequently and not answering questions appropriately. vss and up to date. nsr on the engine monitor. POC = 95mg/dL. pt reports he was ambulating at home when he started having weakness in his RLE. states his foot got stuck in the rug when he then fell onto his abdomen. denies pain/trauma. most recent fall unwitnessed so unknown headstrike or loc. he is not on blood thinners. family reports they heard him fall and then went to assess. family attempted to call EMS but then refused for transport upon their arrival. pt then spent night on a mattress on the floor as he was unable to get up d/t increased weakness. pt noted to have strong/foul smelling urine upon arrival. 18gIV placed in the left AC - labs obtained/sent to lab. on RA w/o difficulty - no sob/wob noted. respirations even/unlabored. ekg performed by tech. pt seen by ED provider. waiting for CT to be completed. plan of care ongoing. family bedside. call myrick placed within reach.
[2024-05-09 12:17] LABS: Ethanol < 10 mg/dL
[2024-05-09 12:18] LABS: B Type Natriuretic Peptide 19 pg/mL (<100); Troponin-I High Sensitivity 5.8 ng/L (<3.5-35.0)
--- NOTE | 2024-05-09 12:42 | PC.NURSE ---
pt to CT at this time. plan of care ongoing.
[2024-05-09 13:31] VITALS: BP 110/49; PULSE 70; RESP 16; TEMP 36.7; O2SAT 96
--- NOTE | 2024-05-09 13:32 | PC.NURSE ---
urine/labs obtained/sent to lab.
[2024-05-09 13:37] LABS: Appearance Urine Clear; Color Urine Yellow; Glucose Urine UA Negative (Negative); Leukocyte Esterase Urine Negative (Negative); Nitrite Urine Negative (Negative); Specific Gravity - Urine 1.025 (1.005-1.025); Urine Blood Negative (Negative); Urine Ketones Negative (Negative); Urine Protein Negative (Neg-Trace)
[2024-05-09 13:40] LABS: Bacteria Urine None Seen (None Seen); Hyaline Casts Urine 0-2 /LPF (0-2); RBC Urine 0-2 /HPF (0-2); Squamous Epithelial Cell Urine 0-2 /HPF (0-2); WBC Urine 0-5 /HPF (0-5)
[2024-05-09 13:43] LABS: Ammonia 98 umol/L (13-55)
[2024-05-09] MEDS: Lactulose 20 GM/30 ML SOLUTION 30 GM PO (15:28)
--- NOTE | 2024-05-09 15:32 | PC.NURSE ---
pt medicated per provider order.
[2024-05-09 17:21] VITALS: BP 116/61; PULSE 73; RESP 16; TEMP 36.6; O2SAT 94
--- NOTE | 2024-05-09 17:23 | PHA.MEDREC ---
Addendum entered by Dawn Munoz RPh 05/09/24 17:36: Reviewed by [facility]. Original Note: Pharmacy Consult ? Medication Reconciliation Pharmacy has completed the medication reconciliation. Spoke with patient and family at bedside. He started Vesicare on Friday, last taken yesterday. He finished his prednisone taper. He is no longer taking celebrex or furosemide. He takes omeprazole prn. The lisinopril was last filled in September of 2023 per claim history, patient reports taking it once daily.
[2024-05-09 18:23] LABS: Alanine Aminotransferase 42 U/L (0-40); Albumin Level 3.9 g/dL (3.5-5.0); Alkaline Phosphatase 71 U/L (39-117); Aspartate Amino Transferase 44 U/L (5-37); Bilirubin Direct 0.6 mg/dL (0.0-0.5); Bilirubin Total 1.3 mg/dL (0.0-1.0); Blood Urea Nitrogen 17 mg/dL (9-16); Calcium 9.6 mg/dL (8.4-10.2); Carbon Dioxide 23 mmol/L (22-29); Chloride 112 mmol/L (96-108); Creatinine Clr Calc Pharmacy 177.1; Estimated Glomerular Filt Rate > 60; Glucose Random 96 mg/dL (60-115); Potassium 3.7 mmol/L (3.3-5.1); Sodium 144 mmol/L (135-145); Total Protein 6.8 g/dL (6.5-8.0)
--- NOTE | 2024-05-09 18:43 | PM.EVENT ---
Event Note Date of Service: 05/09/24 Event Note: Patient seen and examined, no red flag signs, no saddle anesthesia, no urinary retention or fecal incontinence. Also no signs of hepatic encephalopathy, patient is alert and oriented x4, no flapping tremor. No signs of alcohol withdrawal, reports sobriety since september 2023. 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 García. recommend PT eval, likely need STR and close follow up with rheum. Time Spent With Patient Time: Total time managing care of this patient today ____ minutes.
[2024-05-09 20:37] VITALS: BP 112/56; PULSE 81; RESP 14; TEMP 36.9; O2SAT 94
[2024-05-09 22:00] VITALS: BP 122/62; PULSE 85; RESP 16; TEMP 36.9; O2SAT 96
--- NOTE | 2024-05-09 23:40 | PC.NURSE ---
Pt incontinent of urine. Attempted to assist pt to bedside chair to change bedding. Pt with (+) upper body strength but unable to assist with sitting up and positioning to side of bed. Changed bedding with pt in bed.
--- NOTE | 2024-05-09 23:52 | MHC.EDTECH ---
25 mm angelo catheter applied
[2024-05-10] MEDS: Acetaminophen 325 MG TABLET 975 MG PO ×2 (05:16→17:25)
[2024-05-10 06:56] VITALS: BP 140/58; PULSE 79; RESP 18; TEMP 36.6; O2SAT 94
[2024-05-10 09:41] VITALS: BP 117/68
[2024-05-10] MEDS: lisinopriL 10 MG TABLET PO (09:41)
[2024-05-10] MEDS: Fenofibrate 160 MG TABLET PO (09:44)
[2024-05-10] MEDS: Tolterodine Tartrate LA 4 MG CAP.ER.24H PO (09:44)
--- NOTE | 2024-05-10 12:11 | PC.NURSE ---
With 2 assist patient assisted to feet. able to ambulate with wheeled walker to bathroom
--- NOTE | 2024-05-10 12:40 | MHC.CM.PN ---
Addendum entered by Bailey Sahu RN 05/10/24 14:47: [facility] OFFERING, PT EVAL REC'S STR AND CM HAS REQUESTED THEY GO FOR INSURANCE AUTH. Original Note: CM RECEIVED CM CONSULT 05/09/24 AFTER CM HOURS, CM MET W/PT WHO REPORTS HE LIVES W/, PCP/HCP VERIFIED, PT REPORTS HE HAS A WALKER HE USES AT HOME AND HAS TWO APPT'S FOR NEURO TESTING ONE THIS MONDAY 05/14 AND POSSIBLY THE FOLLOWING FRIDAY, PER PT HE HAS BEEN ACTIVE W/OUTPT PT HERE AT [facility], PT EVAL PENDING, PT AND WOULD LIKE STR HOWEVER PT IS AWARE THAT [facility] MAY NOT AUTH FOR STR HOWEVER PT DOES HAVE A BED OFFER AT [facility] PENDING PT EVAL, CM WILL CONT TO FOLLOW.
[2024-05-10 14:26] VITALS: BP 117/68
[2024-05-10 18:16] VITALS: BP 132/78; PULSE 78; RESP 18; TEMP 37.1; O2SAT 97
--- NOTE | 2024-05-10 21:59 | PC.NURSE ---
This designer writer assumed care of this Pt at 1999. Pt moved over to overflow from main ED. Pt A&Ox3, sitting in recliner chair, forgetful at times. and daughter at bedside report AMS improvment and effectiveness to med given by previous RN. Pt is a two assists with walker to bathroom.
--- NOTE | 2024-05-10 23:42 | PC.NURSE ---
Assumed care of pt at 2300, pt attempting to get up and use the br, Reminded to utilize call myrick. Tch assisted pt to use urinal.
[2024-05-11] VITALS: BP 131/66; PULSE 75; RESP 18; TEMP 37; O2SAT 95
[2024-05-11] MEDS: Acetaminophen 325 MG TABLET 975 MG PO (00:06)
--- NOTE | 2024-05-11 00:20 | PC.NURSE ---
Personal care provided to pt, vitals obtained, Ciwa 0, Pt alert and oriented X4. Given pillow and blanket, C/o 4/10 lower back pain, requesting Tylenol. Administered as ordered.
[2024-05-11 05:44] VITALS: RESP 17
--- NOTE | 2024-05-11 07:25 | PC.NURSE ---
report recieved from previous RN, patient resting comfortably on stretcher at this time, offering no complaints, awaiting breakfast tray, plan of care remains ongoing
[2024-05-11 07:44] VITALS: BP 146/80; PULSE 70; RESP 20; TEMP 36.7; O2SAT 94
--- NOTE | 2024-05-11 07:53 | PC.NURSE ---
patient provided with breakfast tray
--- NOTE | 2024-05-11 08:15 | PC.NURSE ---
pharmacy called for fenofibrate and tolteridine tartrate
[2024-05-11 08:25] VITALS: BP 146/80
[2024-05-11] MEDS: Tolterodine Tartrate LA 4 MG CAP.ER.24H PO (08:25)
[2024-05-11] MEDS: lisinopriL 10 MG TABLET PO (08:25)
[2024-05-11] MEDS: Fenofibrate 160 MG TABLET PO (08:25)
--- NOTE | 2024-05-11 08:49 | PC.NURSE ---
patient cleaned up and repositioned into recliner by this RN, linens changed and patient provided with jacqueline mccollum and sarah myrick. patient not offering any complaints at this time.
--- NOTE | 2024-05-11 11:24 | MHC.CM.ED ---
Pt has been accepted to [facility] for a 1pm transfer time via Francisco Javier S: Pt aware and in agreement with plan. [facility] has given facility auth to transfer
--- NOTE | 2024-05-11 11:45 | PC.NURSE ---
patient provided with lunch tray
[2024-05-11 13:20] VITALS: BP 146/80; PULSE 75; RESP 18; TEMP 37.1; O2SAT 99
== END 2024-05-11 13:43 ==
PROVIDERS: Nurse Practitioner Family; Emergency Provider Emergency Medicine; PCP Internal Medicine
DX: S09.90XA Unspecified injury of head, initial encounter (principal); M48.061 Spinal stenosis, lumbar region without neurogenic claudication; M54.2 Cervicalgia; R51.9 Headache, unspecified; R26.2 Difficulty in walking, not elsewhere classified; R94.31 Abnormal electrocardiogram [ECG] [EKG]; R06.02 Shortness of breath; W01.0XXA Fall on same level from slipping, tripping and stumbling without subsequent striking against object, initial encounter; Y93.89 Activity, other specified; Y92.098 Other place in other non-institutional residence as the place of occurrence of the external cause; Y99.8 Other external cause status; Z79.899 Other long term (current) drug therapy; Z51.81 Encounter for therapeutic drug level monitoring
CPT/HCPCS: 36415; 70450; 72125; 80053; 80307; 81001; 82140; 82248; 82550; 82947; 83880; 84484; 85025; 93005; 97162; 99285

== ENCOUNTER → 2024-05-09 11:41 | Outpatient (BNV) | payer OTHER, SELFPAY | PROVIDERS: Emergency Provider Emergency Medicine; PCP Internal Medicine; Visit Provider Internal Medicine | DX: R53.1 Weakness (principal); R94.31 Abnormal electrocardiogram [ECG] [EKG] | CPT/HCPCS: 93010 ==

== ENCOUNTER 2024-05-19 10:35 | Outpatient (REF) | payer OTHER, SELFPAY ==
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
== END 2024-05-19 10:36 | disposition home or self-care (01) ==
LOC: HO.NEURO 10:35
PROVIDERS: PCP Internal Medicine; Visit Provider Student in an Organized Health Care Education/Training Program
DX: R29.898 Other symptoms and signs involving the musculoskeletal system (principal); M60.9 Myositis, unspecified
CPT/HCPCS: 95885; 95886; 95912

== ENCOUNTER → 2024-05-19 10:40 | Outpatient (BNV) | payer OTHER, SELFPAY | PROVIDERS: PCP Internal Medicine; Visit Provider Physical Medicine & Rehabilitation | DX: G62.89 Other specified polyneuropathies (principal) | CPT/HCPCS: 95886; 95912 ==

== ENCOUNTER 2024-06-01 12:40 | Outpatient (AMB) | payer OTHER, SELFPAY ==
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
[2024-06-01 12:57] VITALS: BP 124/62; PULSE 89; O2SAT 95
== END 2024-06-01 13:36 | disposition home or self-care (01) ==
LOC: HO.RHE 12:41
PROVIDERS: PCP Internal Medicine; Visit Provider Student in an Organized Health Care Education/Training Program
DX: R29.898 Other symptoms and signs involving the musculoskeletal system (principal)
CPT/HCPCS: 99214

== ENCOUNTER 2024-06-01 13:52 | Outpatient (AMB) | payer OTHER, SELFPAY ==
--- NOTE | 2024-06-01 14:16 | A.OFFPC_ITS ---
Vital Signs 06/01/24 14:17 Height 5 ft 9 in Weight 313 lb 0.902 oz BMI 46.2 BP 120/68 Blood Pressure Location Lt brachial Position Sitting Pulse 71 Pulse Source Pulse Oximeter Pulse Oximetry (%) 96 Oxygen Delivery Method Room Air Intake Visit Reasons: 4 weeks f/u Intake Note: Patient is here to follow up on Bilateral weakness of legs. Dance Coach Required: No Automotive Technician Instructor: Present Accompanied by: Spouse Allergies No Known Allergies [No Known Allergies*] Allergy (Verified 06/01/24 14:17) Tobacco use date assessed: 06/01/24 Dental Screening Dental Screen Date: 11/18/23 HPI 4 weeks f/u HPI Details 59-year-old male presents to the office to discuss his medical condition. He is accompanied by his and daughter. They were just at the rheumatology office. Since last office visit, patient had a fall which prompted an ER visit. From the hospital he was discharged to a rehab facility. Patient's family is very unhappy with the care he is receiving there. He now is on lactulose to improve his mentation. Apparently he was getting confused and his serum ammonia levels were elevated. He was diagnosed to have encephalopathy and started on lactulose. Patient's mentation improved but he started having several episodes of diarrhea which has made the skin in the buttock area raw. Family is wondering if they can bring the patient home and he can get physical and occupational therapy at home. They are also not very convinced about the diagnosis because of which he is having the above symptoms. They would like to see an infectious disease provider in [facility] to determine if lyme disease could be causing his symptoms. [facility] Medical History (Updated 06/03/24 @ 12:36 by Tracy Richmond MD) Right hand weakness Neuropathy Spinal stenosis at L4-L5 level Back pain Cervicalgia Ataxia Myositis Morbid obesity with BMI of 40.0-44.9, adult Obstructive sleep apnea Thrombocytopenia Cirrhosis Closed rib fracture Acute alcoholic liver disease Gallstones Diarrhea Cholelithiasis Fatty liver Lyme disease GERD (gastroesophageal reflux disease) Vitamin D deficiency Impaired glucose tolerance Hypertriglyceridemia Hypertension Surgical History History of endoscopy No pertinent past surgical history Social History Household Members: Family Housing: House Do you presently have visiting nurse or other home services: No Alcohol intake: former Patient Tobacco Use Status: Never used Tobacco e-Cigarette/Vaping Use: Never Used Second Hand Smoke Exposure: No Substance Use Type: Marijuana service: No Current occupational status: employed Current occupational exposures/hazards: No Cognitive needs: No Hearing needs: No Vision needs: Yes (Glasses) Questionnaire Thrive Questionnaire Date Thrive assessed: 10/18/23 SIM-7 AMB Questionnaire SIM-7 Date SIM - 7 assessed: 11/18/23 Source: Developed by Drs. Darien Kendrick, Magdalene Vargas, Reed Gee and colleagues, with an educational raisa from [employer]. Physical exam (Primary Care) Vital Signs: Last Vital Signs Pulse 71 06/01/24 14:17 BP 120/68 06/01/24 14:17 Pulse Ox 96 06/01/24 14:17 Oxygen Delivery Method Room Air 06/01/24 14:17 BMI result Body Mass Index 46.2 Tobacco/Smoking Status: Tobacco use Status Tobacco use date assessed 06/01/24 06/01/24 14:22 Patient Tobacco Use Status Never used Tobacco 06/01/24 14:22 e-Cigarette/Vaping Use Never Used 06/01/24 14:22 Thrive Assessment: Date of Thrive Assessment Date Thrive assessed 10/18/23 06/01/24 14:22 Coding Level of Care Code Est Pt Level 4 (12841) Complex EM visit Add On G2211 Diagnoses Bilateral leg weakness R29.898 Assessment & Plan Assessment & Plan (1) Bilateral leg weakness: Code(s): R29.898 - Other symptoms and signs involving the musculoskeletal system Category: Medical Plan: I had a discussion with the patient and his family for 30 minutes. I explained the recommendation from the neurologist. The MRI of the head that was done a few weeks ago has not been read yet. It is the belief of the neurologist that his symptoms are due to alcohol-related encephalopathy along with degenerative joint disease in the spine causing peripheral neuropathy. A nerve study was done which confirmed peripheral neuropathy. Patient was seen subsequently by a spinal surgeon and he does not have any operable condition. Patient has been seen by a steel fixer and 1 of the lab work was slightly positive for inclusion body myositis. This blood work is getting repeated if it continues to be elevated muscle biopsy will be requested. In addition, patient requested home physical therapy. A [facility] request has been maya ggested for the optimum way this care should be provided. Also the family's request for an Infectious Disease consult has been honored. A referral has been made to a provider in [place] at patient's request. Orders: Referrals Infectious Disease Referral R29.898 - Other symptoms and signs involving the musculoskeletal system [facility] Referral R29.898 - Other symptoms and signs involving the musculoskeletal system
[2024-06-01 14:17] VITALS: BP 120/68; PULSE 71; O2SAT 96; BMI 46.2
== END 2024-06-01 15:50 | disposition home or self-care (01) ==
LOC: HO.HMCH 13:52
PROVIDERS: PCP Internal Medicine; Visit Provider Internal Medicine
DX: R29.898 Other symptoms and signs involving the musculoskeletal system (principal)

== ENCOUNTER 2024-06-01 15:28 | Outpatient (REF) | payer OTHER, SELFPAY ==
[2024-06-01 16:04] LABS: Ammonia 74 umol/L (13-55)
[2024-06-01 16:05] LABS: C Reactive Protein 0.21 mg/dL (< or = 0.50)
== END 2024-06-01 15:29 | disposition home or self-care (01) ==
LOC: HO.LAB 15:28
PROVIDERS: PCP Internal Medicine; Visit Provider Internal Medicine
DX: M60.9 Myositis, unspecified (principal); R41.0 Disorientation, unspecified
CPT/HCPCS: 36415; 82140; 86140

== ENCOUNTER 2024-06-02 15:00 | Outpatient (AMB) | payer OTHER, SELFPAY ==
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
[2024-06-02 15:05] VITALS: BMI 46.2
== END 2024-06-02 15:59 | disposition home or self-care (01) ==
LOC: HO.HSMS 15:00
PROVIDERS: PCP Internal Medicine; Visit Provider Psychiatry & Neurology Neurology
DX: R27.0 Ataxia, unspecified (principal); G62.9 Polyneuropathy, unspecified; R29.898 Other symptoms and signs involving the musculoskeletal system; M48.061 Spinal stenosis, lumbar region without neurogenic claudication
CPT/HCPCS: 99214

== ENCOUNTER 2024-06-03 13:52 | Outpatient (REF) | payer OTHER, SELFPAY ==
[2024-06-03 15:23] LABS: TSH reflex Free T4 1.29 uIU/mL (0.32-4.0)
[2024-06-03 15:26] LABS: Folate 10.9 ng/mL (> or = 4.0); Vitamin B12 334 pg/mL (200-900)
[2024-06-08 06:37] LABS: Vitamin B6 9.3 ng/mL (2.1-21.7)
[2024-06-08 16:13] LABS: Vitamin D 25-OH, D2 <4 ng/mL; Vitamin D 25-OH, D3 7 ng/mL; Vitamin D 25-OH, Total 7 ng/mL (30-100)
[2024-06-11 16:08] LABS: Vitamin B1 11 nmol/L (8-30)
== END 2024-06-03 13:53 | disposition home or self-care (01) ==
LOC: HO.LAB 13:52
PROVIDERS: Psychiatry & Neurology Neurology; PCP Internal Medicine; Visit Provider Internal Medicine Hypertension Specialist
DX: G62.9 Polyneuropathy, unspecified (principal)
CPT/HCPCS: 36415; 82306; 82607; 82746; 84207; 84425; 84443

== ENCOUNTER 2024-06-17 11:28 | Outpatient (REF) | payer OTHER, SELFPAY ==
[2024-06-17 13:54] LABS: Ammonia 79 umol/L (13-55)
[2024-06-22 02:53] LABS: Zinc 60 mcg/dL (60-130)
== END 2024-06-17 11:29 | disposition home or self-care (01) ==
LOC: HO.LAB 11:28
PROVIDERS: PCP Internal Medicine; Visit Provider Internal Medicine Gastroenterology
DX: K74.60 Unspecified cirrhosis of liver (principal)
CPT/HCPCS: 36415; 82140; 84630

== ENCOUNTER 2024-06-17 11:28 | Outpatient (AMB) | payer OTHER, SELFPAY ==
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
[2024-06-17 11:36] VITALS: BP 116/54; PULSE 63; BMI 47.3
== END 2024-06-17 13:01 | disposition home or self-care (01) ==
PROVIDERS: PCP Internal Medicine; Visit Provider Internal Medicine Gastroenterology
DX: K80.20 Calculus of gallbladder without cholecystitis without obstruction (principal); D69.6 Thrombocytopenia, unspecified; K74.60 Unspecified cirrhosis of liver; K76.82 Hepatic encephalopathy
CPT/HCPCS: 99214

== ENCOUNTER 2024-06-22 11:26 | Outpatient (REF) | payer OTHER, SELFPAY ==
[2024-06-22 11:44] LABS: Appearance Urine Clear; Color Urine Dark Yellow; Glucose Urine UA Negative (Negative); Leukocyte Esterase Urine Negative (Negative); Nitrite Urine Negative (Negative); PH 6.5 (5.0-9.0); Urine Blood Negative (Negative); Urine Ketones Negative (Negative); Urine Protein Negative (Neg-Trace)
== END 2024-06-22 11:27 | disposition home or self-care (01) ==
LOC: HO.LNP 11:26
PROVIDERS: Visit Provider Internal Medicine Gastroenterology
DX: K76.82 Hepatic encephalopathy (principal)
CPT/HCPCS: 81003

== ENCOUNTER 2024-06-28 12:37 | Outpatient (AMB) | payer OTHER, SELFPAY ==
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
== END 2024-06-28 16:15 | disposition home or self-care (01) ==
LOC: HO.HSMS 12:37
PROVIDERS: PCP Internal Medicine; Visit Provider Psychiatry & Neurology Neurology
DX: R27.0 Ataxia, unspecified (principal); G62.9 Polyneuropathy, unspecified; R29.898 Other symptoms and signs involving the musculoskeletal system; M48.061 Spinal stenosis, lumbar region without neurogenic claudication
CPT/HCPCS: 99214

== ENCOUNTER → 2024-06-28 12:37 | Outpatient (BNVA) | payer OTHER, SELFPAY | PROVIDERS: PCP Internal Medicine; Visit Provider Psychiatry & Neurology Neurology ==